=== PATIENT | male | born 1940 | race Caucasian/White ===

== ENCOUNTER 2017-12-01 14:12 | Observation (INO) | payer OTHER ==
--- OUTSIDE RECORDS SUMMARY | 2017-12-01 14:52 | XMS REPORT | Clinical Summary ---
:1940 Author Organization [facility] Address [address] [place] [address] Care Team Providers Name Role Phone Gunnar Samuel MD Primary Care Provider Allergies Active Allergy Reactions Severity Noted Date Comments Codeine Other (See Comments) Low 08/29/2016 dizziness Butorphanol Tartrate Other (See Comments) 08/29/2016 States it was given in the emergency room and after a few minutes patient became very hot and then unresponsive Current Medications Prescription Sig. Disp. Refills Start End Date Status Date carbidopa-levodopa Take 1 tablet 4 Active (SINEMET) 25-100 mg by mouth 4 7 per tablet (four) times a day. AmANTadine (SYMMETREL) Take 100 mg by 2 Active 100 mg capsule mouth 3 7 (three) times a day. clonAZEPAM (KlonoPIN) Take 0.5 mg by 3 Active 0.5 MG tablet mouth nightly. 7 tamsulosin (FLOMAX) Take 1 capsule 30 capsule 0 12/14/19 Active 0.4 mg capsule (0.4 mg total) 8 18 by mouth daily for 30 days. amLODIPine (NORVASC) 5 Take 1 tablet 30 tablet 0 12/14/19 Active mg tablet (5 mg total) 8 18 by mouth daily for 30 days. naloxegol (MOVANTIK) Take 1 tablet 30 tablet 0 12/15/19 Active 25 mg tablet tablet (25 mg total) 8 18 by mouth daily before breakfast for 30 days. gabapentin (NEURONTIN) Take 1 capsule 90 capsule 0 12/14/19 Active 300 mg capsule (300 mg total) 8 18 by mouth 3 (three) times a day for 30 days. diphenhydrAMINE Take 50 mg by 11/14/19 Discontinued (BENADRYL) 50 MG mouth nightly 18 tablet as needed for sleep. aspirin (ECOTRIN) 81 Take 81 mg by 11/14/19 Discontinued MG enteric coated mouth daily. 18 tablet methylPREDNISolone follow package 21 tablet 0 10/29/19 Discontinued (MEDROL DOSEPAK) 4 mg directions 8 18 tablet HYDROcodone-acetaminop Take 1 tablet 20 tablet 0 11/21/19 hen (NORCO) 5-325 mg by mouth every 8 18 per tablet 6 (six) hours as needed for moderate pain for up to 20 doses. Max Daily Amount: 4 tablets Active Problems Problem Noted Date Back pain of lumbar region with sciatica 10/28/2017 Encounters Date Type Specialty Care Team Description 11/30/2017 Office Visit Neurosurgery Rojas Abreu MD Lumbar stenosis with neurogenic claudication (Primary Dx) 11/25/2017 Clinical Support Neurosurgery Sherrie Streeter, Spinal stenosis of RN lumbar region, unspecified whether neurogenic claudication present (Primary Dx) 11/05/2017 Anesthesia Event Radiology Ameya Prasad MD 11/04/2017 Anesthesia Event General Surgery Thania Montoya MD 11/04/2017 Procedure Pass General Surgery 11/04/2017 Surgery General Surgery Rojas Abreu MD LAMINECTOMY, LUMBAR FOR EPIDURAL HEMATOMA L3-4 11/03/2017 Anesthesia Event General Surgery Kaushik Francis MD 11/03/2017 Procedure Pass General Surgery 11/03/2017 Surgery General Surgery Rojas Abreu MD POSS L3-L4 KYPHOPLASTY, POSS L3-S1 DECOMPRESSION 10/28/2017 - Hospital Encounter Neurosurgery Levi, Yen-Te Back pain of lumbar region with sciatica (Primary Dx); 11/13/2017 MD Geovany Degenerative lumbar spinal stenosis; Bel Hernandez Bulging lumbar disc; MD Luz Intractable back pain; Hermila Lewis, Bilateral leg weakness; Falls frequently Jens Benjamin MD after 11/30/2016 Social History Tobacco Use Types Packs/Day Years Used Date Never Smoker Smokeless Tobacco: Never Used Alcohol Use Drinks/Week oz/Week Comments Yes 1 Cans of beer 0.6 1 beer everynight Sex Assigned at Date Recorded Not on file Last Filed Vital Signs Vital Sign Reading Time Taken Blood Pressure 125/64 11/13/2017 12:24 PM CDT Pulse 76 11/13/2017 12:24 PM CDT Temperature 36.8 C (98.2 F) 11/13/2017 12:24 PM CDT Respiratory Rate 17 11/13/2017 12:24 PM CDT Oxygen Saturation 98% 11/13/2017 12:24 PM CDT Inhaled Oxygen Concentration - - Weight 74.8 kg (165 lb) 11/03/2017 1:48 PM CDT Height 182.9 cm (6') 11/03/2017 1:48 PM CDT Body Mass Index 22.38 11/03/2017 1:48 PM CDT Plan of Treatment Date Type Specialty Care Team Description 03/01/2018 Office Visit Neurosurgery Rojas Abreu MD [address] [address] Health Maintenance Due Date Last Done Comments COLON CANCER SCREENING 1992 SHINGRIX VACCINE (#1) 1992 ZOSTER VACCINE 2002 PNEUMOCOCCAL POLYSACCHARIDE VACCINE AGE 65 AND OVER 12/16/2007 PNEUMOCOCCAL-13 12/16/2007 INFLUENZA VACCINE 10/21/2017 Implants Implanted Type Area Athletic Events Scorer Device Expiration Model / Identifier Date Serial / Lot Device Vasclr Clsr Vasoactive Intstnl Peptd 6fr Angio-Seal - [id number] Cardiovascular N/A: 06/20/2018 [id number] / Implanted: 11/05/2017 (Quantity not on file) Implants N/A / [id number] Device Vasclr Clsr Vasoactive Intstnl Peptd 6fr Angio-Seal - [id number] Cardiovascular N/A: 06/20/2018 [id number] / Implanted: 11/05/2017 (Quantity not on file) Implants N/A / [id number] Neurostimulator Imp Activa Sc [id number] 1chnl Qplr - [id number] - [id number] Neurosurgical Right: [employer] 10/17/2017 [id number] / Implanted: Qty: 1 on 08/29/2016 by Rojas Abreu MD Implants Chest NEUROMODULATION [id number] / NA Neurostimulator Imp Activa Sc [id number] 1chnl Qplr - [id number] - [id number] Neurosurgical Left: [employer] 12/04/2017 [id number] / Implanted: Qty: 1 on 08/29/2016 by Rojas Abreu MD Implants Chest NEUROMODULATION [id number] / NA Deep Brain Stimulator-04/06/2005 Implanted: Qty: 2 on 04/06/2005 Procedures Procedure Name Priority Date/Time Associated Comments Diagnosis ZZESTIMATED GFR Routine 11/08/2017 4:00 Results for this AM CDT procedure are in the results section. HC COMPLETE BLD COUNT Routine 11/08/2017 4:00 Results for this W/AUTO DIFF AM CDT procedure are in the results section. BASIC METABOLIC PANEL Routine 11/08/2017 4:00 Results for this AM CDT procedure are in the results section. XR ABDOMEN 1 VW Routine 11/07/2017 12:15 Results for this PORTABLE PM CDT procedure are in the results section. ZZESTIMATED GFR Routine 11/07/2017 4:00 Results for this AM CDT procedure are in the results section. HC COMPLETE BLD COUNT Routine 11/07/2017 4:00 Results for this W/AUTO DIFF AM CDT procedure are in the results section. BASIC METABOLIC PANEL Routine 11/07/2017 4:00 Results for this AM CDT procedure are in the results section. ZZESTIMATED GFR Routine 11/06/2017 4:00 Results for this AM CDT procedure are in the results section. HC COMPLETE BLD COUNT Routine 11/06/2017 4:00 Results for this W/AUTO DIFF AM CDT procedure are in the results section. BASIC METABOLIC PANEL Routine 11/06/2017 4:00 Results for this AM CDT procedure are in the results section. IR ANGIOGRAM SPINAL Routine 11/05/2017 12:13 Results for this SELECT PM CDT procedure are in the results section. TX AN ELECTIVE Routine 11/05/2017 9:41 ENDOTRACHEAL AIRWAY AM CDT Procedure Note - Ameya Prasad MD - 11/05/2017 9:41 AM CDT Airway Date/Time: 11/05/2017 9:41 AM Performed by: AMEYA PRASAD Authorized by: AMEYA PRASAD Location: OR Urgency: Elective Difficult Airway: No Anesthesiologist: AMEYA PRASAD Performed by: anesthesiologist Preoxygenated with 100% O2: Yes C-spine Precautions Maintained Throughout: Yes Mask Ventilation: Easy mask Final Airway Type: Endotracheal airway Final Endotracheal Airway: ETT Cuffed: Yes Technique Used: Direct laryngoscopy Devices/Methods Used in Placement: Intubating stylet Insertion Site: Oral Blade Type: Hernandez Laryngoscope Blade/Videolaryngoscope Blade Size: 2 ETT Size (mm): 8.0 Cuff at minimum occlusion pressure: Yes Measured from: Teeth ETT to Teeth (cm): 22 Placement Verified by: CO2 detection, direct visualization and equal breath sounds Laryngoscopic view: Grade I - full view of glottis Rapid Sequence Induction (RSI): No Modified RSI: No Number of Attempts at Approach: 1 GUMS PROTECTED. ATRAUMATIC. ECG 12-LEAD STAT 11/05/2017 8:22 AM CDT ZZESTIMATED GFR Routine 11/05/2017 12:15 AM CDT HC COMPLETE BLD COUNT Routine 11/05/2017 12:15 AM CDT Results for this W/AUTO DIFF procedure are in the results section. BASIC METABOLIC PANEL Routine 11/05/2017 12:15 AM CDT POC GLUCOSE Routine 11/04/2017 3:21 PM CDT SURGICAL PATHOLOGY REQUEST Routine 11/04/2017 1:14 PM CDT TX AN ELECTIVE ENDOTRACHEAL Routine 11/04/2017 11:41 AM CDT AIRWAY Procedure Note - Lewis Short CRNA - 11/04/2017 11:41 AM CDT Airway Date/Time: 11/04/2017 10:49 AM Performed by: LEWIS SHORT Authorized by: THANIA MONTOYA Location: OR Urgency: Elective Difficult Airway: No Resident/ELEMENTARY SUBSTITUTE TEACHER/AA: LEWIS SHORT Performed by: resident/ELEMENTARY SUBSTITUTE TEACHER/AA Preoxygenated with 100% O2: Yes C-spine Precautions Maintained Throughout: Yes Mask Ventilation: Easy mask Final Airway Type: Endotracheal airway Final Endotracheal Airway: ETT Cuffed: Yes Technique Used: Direct laryngoscopy Blade Type: Hernandez Laryngoscope Blade/Videolaryngoscope Blade Size: 2 ETT Size (mm): 8.0 Cuff at minimum occlusion pressure: Yes Measured from: Gums ETT to Gums (cm): 22 Placement Verified by: CO2 detection, direct visualization and equal breath sounds Laryngoscopic view: Grade I - full view of glottis Rapid Sequence Induction (RSI): No Modified RSI: No Number of Attempts at Approach: 1 BETA TRANSFERRIN LEVEL Routine 11/04/2017 11:15 AM Results for this CDT procedure are in the results section. BLOOD CULTURE, AEROBIC Routine 11/04/2017 11:15 AM Results for this & ANAEROBIC CDT procedure are in the results section. LAMINECTOMY, LUMBAR 11/04/2017 10:05 AM l3-[address] LUMBAR SPINE WO STAT 11/04/2017 9:45 AM Results for this CONTRAST CDT procedure are in the results section. URINE CULTURE Routine 11/04/2017 8:26 AM Results for this CDT procedure are in the results section. URINALYSIS SCREEN AND Routine 11/04/2017 7:45 AM Results for this MICROSCOPY, WITH REFLEX CDT procedure are in TO CULTURE the results section. PARTIAL THROMBOPLASTIN Routine 11/04/2017 3:45 AM Results for this TIME (PTT) CDT procedure are in the results section. OR FL > 1 HOUR Routine 11/03/2017 4:15 PM Results for this CDT procedure are in the results section. TX AN ELECTIVE Routine 11/03/2017 2:53 PM ENDOTRACHEAL AIRWAY CDT Procedure Note - Roxie Riley CRNA - 11/03/2017 2:53 PM CDT Airway Date/Time: 11/03/2017 2:32 PM Performed by: ROXIE RILEY Authorized by: KAUSHIK FRANCIS Location: OR Urgency: Elective Difficult Airway: No Preoxygenated with 100% O2: Yes C-spine Precautions Maintained Throughout: Yes Mask Ventilation: Easy mask Final Airway Type: Endotracheal airway Final Endotracheal Airway: ETT Cuffed: Yes Technique Used: Direct laryngoscopy Devices/Methods Used in Placement: Intubating stylet Insertion Site: Oral Blade Type: Hernandez Laryngoscope Blade/Videolaryngoscope Blade Size: 2 ETT Size (mm): 8.0 Cuff at minimum occlusion pressure: Yes Measured from: Lips ETT to Lips (cm): 22 Placement Verified by: CO2 detection and direct visualization Laryngoscopic view: Grade I - full view of glottis Rapid Sequence Induction (RSI): No Modified RSI: No Number of Attempts at Approach: 1 KYPHOPLASTY 11/03/2017 12:30 PM CDT PARTIAL THROMBOPLASTIN TIME Routine 11/03/2017 10:35 AM CDT Results for this (PTT) procedure are in the results section. PROTHROMBIN TIME WITH INR Routine 11/03/2017 10:35 AM CDT PLATELET FUNCTION ANALYSIS Routine 11/03/2017 10:35 AM CDT SURGICAL PATHOLOGY REQUEST Routine 11/03/2017 8:49 AM CDT ZZESTIMATED GFR Routine 11/03/2017 6:31 AM CDT PARTIAL THROMBOPLASTIN TIME Routine 11/03/2017 6:31 AM CDT Results for this (PTT) procedure are in the results section. TYPE AND SCREEN Routine 11/03/2017 6:31 AM CDT PROTHROMBIN TIME WITH INR Routine 11/03/2017 6:31 AM CDT COMPREHENSIVE METABOLIC Routine 11/03/2017 6:31 AM CDT Results for this PANEL procedure are in the results section. HC COMPLETE BLD COUNT W/AUTO Routine 11/03/2017 6:31 AM CDT Results for this DIFF procedure are in the results section. NM BONE SCAN 3 PHASE Routine 11/02/2017 5:19 PM CDT ZZESTIMATED GFR Routine 11/02/2017 4:00 AM CDT BASIC METABOLIC PANEL Routine 11/02/2017 4:00 AM CDT POC GLUCOSE Routine 11/01/2017 8:37 PM CDT POC GLUCOSE Routine 11/01/2017 4:47 PM CDT POC GLUCOSE Routine 11/01/2017 12:18 PM CDT POC GLUCOSE Routine 11/01/2017 7:25 AM CDT ZZESTIMATED GFR Routine 11/01/2017 3:31 AM CDT COMPREHENSIVE METABOLIC Routine 11/01/2017 3:31 AM CDT Results for this PANEL procedure are in the results section. HC COMPLETE BLD COUNT W/AUTO Routine 11/01/2017 3:00 AM CDT Results for this DIFF procedure are in the results section. ZZESTIMATED GFR Routine 10/31/2017 4:35 AM CDT COMPREHENSIVE METABOLIC Routine 10/31/2017 4:35 AM CDT Results for this PANEL procedure are in the results section. HC COMPLETE BLD COUNT W/AUTO Routine 10/31/2017 4:35 AM CDT Results for this DIFF procedure are in the results section. CT POST MYELOGRAM LUMBAR Routine 10/30/2017 4:39 PM CDT IR MYELOGRAM LUMB INCL INJ W Routine 10/30/2017 2:35 PM CDT Results for this S&I procedure are in the results section. POC GLUCOSE Routine 10/30/2017 12:34 PM CDT POC GLUCOSE Routine 10/30/2017 9:26 AM CDT POC GLUCOSE Routine 10/30/2017 5:51 AM CDT HC COMPLETE BLD COUNT W/AUTO Routine 10/30/2017 4:10 AM CDT Results for this DIFF procedure are in the results section. ZZESTIMATED GFR Routine 10/30/2017 4:00 AM CDT COMPREHENSIVE METABOLIC Routine 10/30/2017 4:00 AM CDT Results for this PANEL procedure are in the results section. URINALYSIS SCREEN AND STAT 10/29/2017 8:44 AM CDT Results for this MICROSCOPY, WITH REFLEX TO procedure are in the CULTURE results section. URINE CULTURE STAT 10/29/2017 8:44 AM CDT POC GLUCOSE Routine 10/29/2017 7:54 AM CDT PLATELET FUNCTION P2Y12 Routine 10/28/2017 11:45 PM CDT PLATELET FUNCTION ANALYSIS Routine 10/28/2017 11:45 PM CDT PARTIAL THROMBOPLASTIN TIME STAT 10/28/2017 11:45 PM CDT Results for this (PTT) procedure are in the results section. PROTHROMBIN TIME WITH INR STAT 10/28/2017 11:45 PM CDT HC COMPLETE BLD COUNT W/AUTO STAT 10/28/2017 11:45 PM CDT Results for this DIFF procedure are in the results section. POC GLUCOSE Routine 10/28/2017 10:29 PM CDT ZZESTIMATED GFR STAT 10/28/2017 10:01 PM CDT COMPREHENSIVE METABOLIC STAT 10/28/2017 10:01 PM CDT Results for this PANEL procedure are in the results section. CT PELVIS WO CONTRAST STAT 10/28/2017 6:[address] LUMBAR SPINE WO CONTRAST STAT 10/28/2017 6:28 PM CDT after 11/30/2016 Results Estimated GFR (11/08/2017 4:00 AM)Only the most recent of10 resultswithin the time period is included. GFR Non Af Amer 73 mL/min/1.73 m2 [facility] DEPARTMENT OF PATHOLOGY AND GENOMIC MEDICINE GFR Af Amer 88 mL/min/1.73 m2 [facility] DEPARTMENT OF Comment: PATHOLOGY AND GENOMIC Chronic kidney disease: <60 mL/min/1.73m2 MEDICINE Kidney failure: <15 mL/min/1.73m2 The estimated GFR is calculated from the IDMS-traceable Modification of Diet in Renal Disease Equation. The accuracy of the calculation is poor when the creatinine is normal. Calculated values >90 mL/min/1.73m2 are not reported. This equation has not been validated in children (<18 years), women, the elderly (>70 years), or ethnic groups other than Caucasians and Americans. Specimen Plasma specimen Performing Organization Address City/State/Zipcode Phone Number [facility] DEPARTMENT OF PATHOLOGY AND [address] [place] [address] [employer] [facility] CBC with platelet and differential (11/08/2017 4:00 AM)Only the most recent of9 resultswithin the time period is included. WBC 6.84 4.50 - 11.00 k/uL [facility] DEPARTMENT OF PATHOLOGY AND GENOMIC MEDICINE RBC 3.60 (L) 4.40 - 6.00 m/uL [facility] DEPARTMENT OF PATHOLOGY AND GENOMIC MEDICINE HGB 10.9 (L) 14.0 - 18.0 g/dL [facility] DEPARTMENT OF PATHOLOGY AND GENOMIC MEDICINE HCT 32.5 (L) 41.0 - 51.0 % [facility] DEPARTMENT OF PATHOLOGY AND GENOMIC MEDICINE MCV 90.3 82.0 - 100.0 fL [facility] DEPARTMENT OF PATHOLOGY AND GENOMIC MEDICINE MCH 30.3 27.0 - 34.0 pg [facility] DEPARTMENT OF PATHOLOGY AND GENOMIC MEDICINE MCHC 33.5 31.0 - 37.0 g/dL [facility] DEPARTMENT OF PATHOLOGY AND GENOMIC MEDICINE RDW - SD 48.6 37.0 - 55.0 fL [facility] DEPARTMENT OF PATHOLOGY AND GENOMIC MEDICINE MPV 9.5 8.8 - 13.2 fL [facility] DEPARTMENT OF PATHOLOGY AND GENOMIC MEDICINE Platelet count 150 150 - 400 k/uL [facility] DEPARTMENT OF PATHOLOGY AND GENOMIC MEDICINE Nucleated RBC 0.00 /100 WBC [facility] DEPARTMENT OF PATHOLOGY AND GENOMIC MEDICINE Neutrophils 70.2 (H) 39.0 - 69.0 % [facility] DEPARTMENT OF PATHOLOGY AND GENOMIC MEDICINE Lymphocytes 15.8 (L) 25.0 - 45.0 % [facility] DEPARTMENT OF PATHOLOGY AND GENOMIC MEDICINE Monocytes 9.6 0.0 - 10.0 % [facility] DEPARTMENT OF PATHOLOGY AND GENOMIC MEDICINE Eosinophils 2.9 0.0 - 5.0 % [facility] DEPARTMENT OF PATHOLOGY AND GENOMIC MEDICINE Basophils 0.3 0.0 - 1.0 % [facility] DEPARTMENT OF PATHOLOGY AND GENOMIC MEDICINE Immature granulocytes 1.2 (H)Comment: 0.0 - 1.0 % [facility] DEPARTMENT OF "Immature PATHOLOGY AND GENOMIC granulocytes" MEDICINE (promyelocytes, myelocytes, metamyelocytes) Specimen Blood Performing Organization Address City/State/Zipcode Phone Number [facility] DEPARTMENT OF PATHOLOGY [address] [address] [employer] MEDICINE Basic metabolic panel (11/08/2017 4:00 AM)Only the most recent of5 resultswithin the time period is included. Sodium 139 135 - 148 mEq/L [facility] DEPARTMENT OF PATHOLOGY AND GENOMIC MEDICINE Potassium 3.9 3.5 - 5.0 mEq/L [facility] DEPARTMENT OF PATHOLOGY AND GENOMIC MEDICINE Chloride 103 98 - 112 mEq/L [facility] DEPARTMENT OF PATHOLOGY AND GENOMIC MEDICINE CO2 23 (L) 24 - 31 mEq/L [facility] DEPARTMENT OF PATHOLOGY AND GENOMIC MEDICINE Anion gap 13@ANIO 7 - 15 mEq/L [facility] DEPARTMENT OF PATHOLOGY AND GENOMIC MEDICINE BUN 16 8 - 23 mg/dL [facility] DEPARTMENT OF PATHOLOGY AND GENOMIC MEDICINE Creatinine 1.0 0.7 - 1.2 mg/dL [facility] DEPARTMENT OF PATHOLOGY AND GENOMIC MEDICINE Glucose 95 65 - 99 mg/dL [facility] DEPARTMENT OF PATHOLOGY AND GENOMIC MEDICINE Calcium 8.4 (L) 8.8 - 10.2 mg/dL [facility] DEPARTMENT OF PATHOLOGY AND GENOMIC MEDICINE Specimen Plasma specimen Performing Organization Address [facility] Phone Number [facility] DEPARTMENT OF PATHOLOGY AND [address] [place] [address] GENOMIC MEDICINE XR Abdomen 1 Vw Portable (11/07/2017 12:15 PM) Narrative Performed At EXAMINATION:XR ABDOMEN 1 VW PORTABLE [facility] CLINICAL HISTORY:abd distendedconstipatedhypoactive bs COMPARISON:None. FINDINGS: There is gaseous distention of the colon with a moderate to large amount of stool in the descending colon and sigmoid. A vertical staple line is present in the over the distal lumbar spine from recent surgery. A surgical drain catheter to is located in the lower lumbar spine region. IMPRESSION: Gaseous distention of the ascending and transverse colon may be secondary to constipation or postoperative adynamic ileus. [id number] Procedure Note Interface, Radiology Results Incoming - 11/07/2017 1:33 PM CDT EXAMINATION: XR ABDOMEN 1 VW PORTABLE CLINICAL HISTORY: abd distended constipated hypoactive bs COMPARISON: None. FINDINGS: There is gaseous distention of the colon with a moderate to large amount of stool in the descending colon and sigmoid. A vertical staple line is present in the over the distal lumbar spine from recent surgery. A surgical drain catheter to is located in the lower lumbar spine region. IMPRESSION: Gaseous distention of the ascending and transverse colon may be secondary to constipation or postoperative adynamic ileus. [id number] Performing Organization Address [facility] Phone Number [facility] [address] [place] [address] IR Angiogram Spinal (11/05/2017 12:13 PM) Narrative Performed At Clinical History: [facility] 76-year-old male who had undergone a lumbar laminectomy at with evidence of previous hemosiderin suggestive of underlying vascular malformation Technique: Written informed consent was obtained from the patient. Under general anesthesia, utilizing a right femoral percutaneous approach, following procedures were performed. Bilateral L1 injection in frontal projection. Left L2 injection in frontal projection. Right L2 injection in frontal projection. Bilateral L3 injection in frontal projection. Bilateral L4 injection in frontal projection. Median sacral artery examination in frontal projection. Left T12 examination in frontal projection. Right T11 examination in frontal projection. Left T10 examination in frontal projection. Right T10 examination in frontal projection. Left T9 examination in frontal projection. Right T9 examination in frontal projection. Left T8 examination in frontal projection. Right T8 examination in frontal projection. Left T7 examination in frontal projection. Right T7 examination in frontal projection. Left T6 examination in frontal projection. Right T6 examination in frontal projection. Right T4-T5 examination in frontal projection. Left T5 examination in frontal projection. Left supreme intercostal injection in frontal projection. Left iliac examination in frontal projection. Right iliac examination in frontal projection. Right vertebral injection, cervical evaluation in biplane projection. Right supreme intercostal injection in frontal projection. Right vertebral injection, cerebral examination in biplane projection. Right thyrocervical examination in frontal projection. Right external carotid arteriogram in biplane projection. Left external carotid injection in biplane projection. Left vertebral injection, cervical evaluation in frontal projection. Left vertebral injection, cerebral examination in biplane projection. Left thyrocervical examination in frontal projection. Right common femoral arteriogram in frontal projection. KA R 3462 mGy Findings: The L1 injection shows both lumbar arteries. There is no evidence of vascular malformation. Left L to examination is without vascular abnormality. Right L2 examination is without vascular abnormalities. The L3 injection shows both lumbar arteries. No vascular abnormality is are identified. The L4 injection fills both arteries as well as the median sacral artery. No vascular abnormalities are identified. Median sacral examination shows collaterals to the external iliac artery with filling of the gluteal arteries. No vascular abnormalities are identified. Left T12 examination shows the anterior spinal artery and is normal in appearance with no evidence of dural fistula. The right T12 intercostal injection fills both the T12 and T11 levels which are conjoined. No vascular abnormalities are identified. Left T11 injection shows a conjoined origin of the left T10 and T11 intercostal's. No vascular abnormalities are identified. Right T10 examination shows no vascular abdomen arteries. Left T9 examination shows no vascular abnormalities. Right T9 evaluation shows no vascular abdomen arteries. There is stenosis at the origin of the T9 intercostal. Left T8 examination shows no vascular abnormalities. Right T8 examination shows no vascular abnormalities but there is stenosis with plaque at the origin of the T8 intercostal. Left T7 examination is normal with no vascular abdomen arteries. Right T7 examination is normal with no vascular abnormalities. Left T6 evaluation is normal with no vascular abnormalities. Right T6 examination is normal with no vascular abnormalities. There is mild stenosis at the origin of the right T6 intercostal. Right T5 injection shows both the T4 and T5 intercostal's which are normal with no vascular abdomen arteries identified. Left T5 examination is normal with no vascular denies are identified. Left supreme intercostal injection is normal with no vascular abnormalities. Left internal iliac examination shows some collaterals to the median sacral artery but no vascular abnormalities are identified. 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 No vascular denies are identified. Right vertebral injection, cervical evaluation shows normal cervical vertebral artery with some tortuosity. The anterior spinal artery is identified in the cervical region which is normal. Right supreme intercostal injection shows normal supreme intercostals with no vascular abnormalities identified. Right vertebral injection, cerebral examination shows mild narrowing of the left P1 P2 junction. There is antegrade flow basilar artery and posterior circulation. No vascular denies are identified. Right thyrocervical injection shows no vascular abnormalities. Right external carotid injection shows normal external carotid branches with no evidence of dural fistula or vascular malformation. Left vertebral injection, cervical evaluation shows normal cervical vertebral artery with some tortuosity. Left vertebral injection, cerebral examination shows antegrade flow to the basilar artery and posterior circulation. No vascular abdomen arteries are identified. Left thyrocervical examination shows normal branches with no vascular abnormality identified Plain film examination of the abdomen shows dilatation of the ureters. There may be some degree of stenosis of the ureter is at the entrance to the bladder. Right common femoral arteriogram demonstrates a normal common femoral, superficial femoral and profunda arteries. There were no immediate complications. The femoral sheath was removed and hemostasis was maintained by manual compression and Angio-Seal. Impression: Negative spinal axis arteriogram with no evidence of dural fistula or arteriovenous malformation. [facility]-[id number] Procedure Note [facility], Radiology Results - 11/05/2017 7:19 PM CDT Clinical History: 76-year-old male who had undergone a lumbar laminectomy at with evidence of previous hemosiderin suggestive of underlying vascular malformation Technique: Written informed consent was obtained from the patient. Under general anesthesia, utilizing a right femoral percutaneous approach, following procedures were performed. Bilateral L1 injection in frontal projection. Left L2 injection in frontal projection. Right L2 injection in frontal projection. Bilateral L3 injection in frontal projection. Bilateral L4 injection in frontal projection. Median sacral artery examination in frontal projection. Left T12 examination in frontal projection. Right T11 examination in frontal projection. Left T10 examination in frontal projection. Right T10 examination in frontal projection. Left T9 examination in frontal projection. Right T9 examination in frontal projection. Left T8 examination in frontal projection. Right T8 examination in frontal projection. Left T7 examination in frontal projection. Right T7 examination in frontal projection. Left T6 examination in frontal projection. Right T6 examination in frontal projection. Right T4-T5 examination in frontal projection. Left T5 examination in frontal projection. Left supreme intercostal injection in frontal projection. Left iliac examination in frontal projection. Right iliac examination in frontal projection. Right vertebral injection, cervical evaluation in biplane projection. Right supreme intercostal injection in frontal projection. Right vertebral injection, cerebral examination in biplane projection. Right thyrocervical examination in frontal projection. Right external carotid arteriogram in biplane projection. Left external carotid injection in biplane projection. Left vertebral injection, cervical evaluation in frontal projection. Left vertebral injection, cerebral examination in biplane projection. Left thyrocervical examination in frontal projection. Right common femoral arteriogram in frontal projection. KA R 3462 mGy Findings: The L1 injection shows both lumbar arteries. There is no evidence of vascular malformation. Left L to examination is without vascular abnormality. Right L2 examination is without vascular abnormalities. The L3 injection shows both lumbar arteries. No vascular abnormality is are identified. The L4 injection fills both arteries as well as the median sacral artery. No vascular abnormalities are identified. Median sacral examination shows collaterals to the external iliac artery with filling of the gluteal arteries. No vascular abnormalities are identified. Left T12 examination shows the anterior spinal artery and is normal in appearance with no evidence of dural fistula. The right T12 intercostal injection fills both the T12 and T11 levels which are conjoined. No vascular abnormalities are identified. Left T11 injection shows a conjoined origin of the left T10 and T11 intercostal 's. No vascular abnormalities are identified. Right T10 examination shows no vascular abdomen arteries. Left T9 examination shows no vascular abnormalities. Right T9 evaluation shows no vascular abdomen arteries. There is stenosis at the origin of the T9 intercostal. Left T8 examination shows no vascular abnormalities. Right T8 examination shows no vascular abnormalities but there is stenosis with plaque at the origin of the T8 intercostal. Left T7 examination is normal with no vascular abdomen arteries. Right T7 examination is normal with no vascular abnormalities. Left T6 evaluation is normal with no vascular abnormalities. Right T6 examination is normal with no vascular abnormalities. There is mild stenosis at the origin of the right T6 intercostal. Right T5 injection shows both the T4 and T5 intercostal's which are normal with no vascular abdomen arteries identified. Left T5 examination is normal with no vascular denies are identified. Left supreme intercostal injection is normal with no vascular abnormalities. Left internal iliac examination shows some collaterals to the median sacral artery but no vascular abnormalities are identified. 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 No vascular denies are identified. Right vertebral injection, cervical evaluation shows normal cervical vertebral artery with some tortuosity. The anterior spinal artery is identified in the cervical region which is normal. Right supreme intercostal injection shows normal supreme intercostals with no vascular abnormalities identified. Right vertebral injection, cerebral examination shows mild narrowing of the left P1 P2 junction. There is antegrade flow basilar artery and posterior circulation. No vascular denies are identified. Right thyrocervical injection shows no vascular abnormalities. Right external carotid injection shows normal external carotid branches with no evidence of dural fistula or vascular malformation. Left vertebral injection, cervical evaluation shows normal cervical vertebral artery with some tortuosity. Left vertebral injection, cerebral examination shows antegrade flow to the basilar artery and posterior circulation. No vascular abdomen arteries are identified. Left thyrocervical examination shows normal branches with no vascular abnormality identified Plain film examination of the abdomen shows dilatation of the ureters. There may be some degree of stenosis of the ureter is at the entrance to the bladder. Right common femoral arteriogram demonstrates a normal common femoral, superficial femoral and profunda arteries. There were no immediate complications. The femoral sheath was removed and hemostasis was maintained by manual compression and Angio-Seal. Impression: Negative spinal axis arteriogram with no evidence of dural fistula or arteriovenous malformation. [facility]-[id number] Performing Organization Address City/State/Zipcode Phone Number [facility] [address] [place] [address] ECG 12 lead (11/05/2017 8:22 AM) Ventricular rate 82 [facility] MUSE Atrial rate 43 [facility] MUSE QRSD interval 98 [facility] MUSE QT interval 374 [facility] MUSE QTC interval 436 [facility] MUSE QRS axis 1 31 [facility] MUSE T wave axis 1 [facility] MUSE EKG impression ^^^ Poor data quality, interpretation may be adversely affected -Undetermined rhythm-Minimal voltage criteria for LVH, may be normal variant-ST & T wave abnormality, consider inferior ischemia-Abnorm [facility] MUSE al ECG-No previous ECGs available- Performing Organization Address City/[facility] Phone Number [facility] MUSE [address] [place] [phone] POC glucose (11/04/2017 3:21 PM)Only the most recent of10 resultswithin the time period is included. POC glucose 100 (H) 65 - 99 mg/dL [facility] DEPARTMENT OF PATHOLOGY AND Comment: GENOMIC MEDICINE [facility] Notified RN Meter ID: [id number] Seamless Tube Roller: CHRIS JOHN Performing Organization Address City/[facility] Mex[facility]ode Phone Number [facility] DEPARTMENT OF PATHOLOGY AND [address] [place] [phone] GENOMIC MEDICINE Surgical pathology request (11/04/2017 1:14 PM)Only the most recent of2 resultswithin the time period is included. [facility] DEPARTMENT OF PATHOLOGY AND GENOMIC MEDICINE Surgical pathology report See link below for PDF [facility] DEPARTMENT OF Lab Report PATHOLOGY AND GENOMIC MEDICINE Result status This is Final Report [facility] DEPARTMENT OF for [id number] PATHOLOGY AND GENOMIC MEDICINE Performing Organization Address [facility] Phone Number [facility] DEPARTMENT OF PATHOLOGY AND [address] [place] [phone] [facility] Blood culture, aerobic & anaerobic (11/04/2017 11:15 AM) Blood culture isolate No growth after 5 days of incubation. [facility] DEPARTMENT OF Comment: PATHOLOGY AND GENOMIC Specimen Information MEDICINE Specimen Source: Blood Specimen Site: Unspecified Specimen Blood Performing Organization Address City/[facility] Phone Number [facility] DEPARTMENT OF PATHOLOGY AND [address] [place] [phone] [facility] Beta transferrin level (11/04/2017 11:15 AM) Beta-2 transferrin See below [facility] DEPARTMENT OF PATHOLOGY Comment: AND [employer] MEDICINE Beta-2 transferrin is not seen in this specimen, indicating that within the limits of this assay, there is no evidence of CSF in this specimen. Reviewed by Dr. Cinthia Luis MD., Dr. Zahira Bourgeois PhD.,Dr. Ezequiel Youssef MD. TRFB results called to and read back by Lizbet RICHARDS/ALESSANDRO (name/location) at 11/04/201704:45(date/time) by TS. Specimen Fluid Performing Organization Address City/State/Zipcode Phone Number [facility] DEPARTMENT OF PATHOLOGY AND [address] [place], [place] [phone] [place] [address] CT Lumbar Spine Wo Contrast (11/04/2017 9:45 AM)Only the most recent of2 resultswithin the time period is included. Narrative Performed At EXAMINATION:CT LUMBAR SPINE WO CONTRAST [facility] CLINICAL HISTORY:Post op laminectomychange in exam COMPARISON:October 30, 2017 Findings: Lumbar spine alignment is within normal limits. Generalized osteopenia. Stable multilevel compression deformities in the lumbar and visualized thoracic vertebrae. No new compression fractures. Mild to moderate degenerative changes of bilateral sacroiliac joints. Interval laminectomy changes at L3-4. There is expected air and edematous changes on the laminectomy site and overlying soft tissues. No residual bony narrowing. Presence of epidural hematoma or residual canal narrowing can be further evaluated with myelogram or MRI. Stable degenerative changes are remaining levels. IMPRESSION: Expected postoperative changes related to recent L3-4 laminectomy. [facility]-[id number] Procedure Note Hm Interface, Radiology Results Incoming - 11/04/2017 10:22 AM CDT EXAMINATION: CT LUMBAR SPINE WO CONTRAST CLINICAL HISTORY: Post op laminectomy change in exam COMPARISON: October 30, 2017 Findings: Lumbar spine alignment is within normal limits. Generalized osteopenia. Stable multilevel compression deformities in the lumbar and visualized thoracic vertebrae. No new compression fractures. Mild to moderate degenerative changes of bilateral sacroiliac joints. Interval laminectomy changes at L3-4. There is expected air and edematous changes on the laminectomy site and overlying soft tissues. No residual bony narrowing. Presence of epidural hematoma or residual canal narrowing can be further evaluated with myelogram or MRI. Stable degenerative changes are remaining levels. IMPRESSION: Expected postoperative changes related to recent L3-4 laminectomy. [facility]-[id number] Performing Organization Address [facility]ode Phone Number [facility] [address] [place] [address] Urine culture (11/04/2017 8:26 AM)Only the most recent of2 resultswithin the time period is included. Urine culture SEE COMMENTComment: Bacteriuria [facility] DEPARTMENT OF PATHOLOGY screen negative. AND GENOMIC MEDICINE Performing Organization Address [facility]i Phone Number [facility] DEPARTMENT OF PATHOLOGY AND [address] [place] [phone] GENOMIC MEDICINE Urinalysis screen and microscopy, with reflex to culture (11/04/2017 7:45 AM) Only the most recent of2 resultswithin the time period is included. Specimen site Clean catch [facility] DEPARTMENT OF PATHOLOGY AND GENOMIC MEDICINE Color, UA Yellow [facility] DEPARTMENT OF PATHOLOGY AND GENOMIC MEDICINE Appearance, UA Clear [facility] DEPARTMENT OF PATHOLOGY AND GENOMIC MEDICINE Specific gravity, UA 1.017 1.001 - 1.035 [facility] DEPARTMENT OF PATHOLOGY AND GENOMIC MEDICINE pH, UA 5.0 5.0 - 8.5 [facility] DEPARTMENT OF PATHOLOGY AND GENOMIC MEDICINE Protein, UA Negative Negative [facility] DEPARTMENT OF PATHOLOGY AND GENOMIC MEDICINE Glucose, UA Negative Negative [facility] DEPARTMENT OF PATHOLOGY AND GENOMIC MEDICINE Ketones, UA 1+ (A) Negative [facility] DEPARTMENT OF PATHOLOGY AND GENOMIC MEDICINE Bilirubin, UA Negative Negative [facility] DEPARTMENT OF PATHOLOGY AND GENOMIC MEDICINE Blood, UA Negative Negative [facility] DEPARTMENT OF PATHOLOGY AND GENOMIC MEDICINE Nitrite, UA Negative Negative [facility] DEPARTMENT OF PATHOLOGY AND GENOMIC MEDICINE Urobilinogen, UA <2.0 <2.0 [facility] DEPARTMENT OF PATHOLOGY AND GENOMIC MEDICINE Leukocyte esterase, UA Negative Negative [facility] DEPARTMENT OF PATHOLOGY AND GENOMIC MEDICINE Epithelial cells, UA <1 /HPF [facility] DEPARTMENT OF PATHOLOGY AND GENOMIC MEDICINE Round epithelial cells, UA <1 0 - 1 /HPF [facility] DEPARTMENT OF PATHOLOGY AND GENOMIC MEDICINE WBC, UA 1 0 - 1 /HPF [facility] DEPARTMENT OF PATHOLOGY AND GENOMIC MEDICINE RBC, UA 1 0 - 5 /HPF [facility] DEPARTMENT OF PATHOLOGY AND GENOMIC MEDICINE Bacteria, UA None seen None seen [facility] DEPARTMENT OF PATHOLOGY AND GENOMIC MEDICINE Yeast, UA None seen [facility] DEPARTMENT OF PATHOLOGY AND GENOMIC MEDICINE Yeast with pseudohyphae, UA None seen [facility] DEPARTMENT OF PATHOLOGY AND GENOMIC MEDICINE Hyaline casts, UA 1 /LPF [facility] DEPARTMENT OF PATHOLOGY AND GENOMIC MEDICINE Specimen Urine Performing Organization Address City/State/Zipcode Phone Number [facility] DEPARTMENT OF PATHOLOGY AND [address] [place] [address] [facility] Partial thromboplastin time, activated (11/04/2017 3:45 AM)Only the most recent of4 resultswithin the time period is included. PTT 29.2 23.0 - 36.0 sec [facility] DEPARTMENT OF PATHOLOGY Comment: AND GENOMIC MEDICINE PTT therapeutic range for unfractionated heparin is 61.0-112.0 seconds which corresponds to Anti-Xa 0.3-0.7 U/ml. Specimen Blood Performing Organization Address City/[facility]/Zipcode Phone Number [facility] DEPARTMENT OF PATHOLOGY AND [address] [place] [address] GENOMIC MEDICINE [place] > I Hour (11/03/2017 4:15 PM) Narrative Performed At EXAMINATION:OR [place] 1 HOUR [facility] C-arm fluoroscopy was requested in OR. LOCATION: [facility] OR 10 PROCEDURE: C-ARM FOR POSS L3-L4 KYPHOPLASTY, POSS L3-S1 DECOMPRESSION START: 1430 END: 1615 [place] TIME: .1min DOSE (mGy): 2.25 TECH: DR/VINEET IMPRESSION: Separate operative report will be issued by the physician performing the procedure. [id number] Procedure Note Interface, Radiology Results Incoming - 11/03/2017 6:26 PM CDT EXAMINATION: [place] 1 HOUR C-arm fluoroscopy was requested in OR. LOCATION: [facility] OR 10 PROCEDURE: C-ARM FOR POSS L3-L4 KYPHOPLASTY, POSS L3-S1 DECOMPRESSION START: 1430 END: 1615 [place] TIME: .1min DOSE (mGy): 2.25 TECH: DR/TD IMPRESSION: Separate operative report will be issued by the physician performing the procedure. [id number] Performing Organization Address City/State/Zipcode Phone Number [facility] [address] [place] [address] Prothrombin time with INR (11/03/2017 10:35 AM)Only the most recent of3 resultswithin the time period is included. Prothrombin time 15.1 (H) 12.0 - 15.0 sec [facility] DEPARTMENT OF PATHOLOGY AND GENOMIC MEDICINE INR 1.2 [facility] DEPARTMENT OF Comment: PATHOLOGY AND GENOMIC The International Normalized Ratio (INR) is a therapeutic MEDICINE monitoring tool for patients who are stable on oral anticoagulant therapy. An INR of 2.0-3.0 is suggested for deep vein thrombosis/pulmonary embolism. Specimen Blood Performing Organization Address City/[facility]/Zipcode Phone Number [facility] DEPARTMENT OF PATHOLOGY AND [address] [place] [address] MEDICINE Platelet function analysis (11/03/2017 10:35 AM)Only the most recent of2 resultswithin the time period is included. PFA EPI closure time 125 92 - 184 sec [facility] DEPARTMENT OF PATHOLOGY AND GENOMIC MEDICINE PFA ADP closure time 114 72 - 126 sec [facility] DEPARTMENT OF PATHOLOGY AND GENOMIC MEDICINE Specimen Plasma specimen Performing Organization Address City/[facility] Phone Number [facility] DEPARTMENT OF PATHOLOGY AND [address] [place] [address] GENOMIC MEDICINE Type and screen (11/03/2017 6:31 AM) ABO grouping A [facility] DEPARTMENT OF PATHOLOGY AND GENOMIC MEDICINE Rh type POS [facility] DEPARTMENT OF PATHOLOGY AND GENOMIC MEDICINE Antibody screen (gel) NEG [facility] DEPARTMENT OF PATHOLOGY AND GENOMIC MEDICINE Specimen Blood Performing Organization Address [facility] Phone Number [facility] DEPARTMENT OF PATHOLOGY AND [address] [place] [address] MEDICINE Comprehensive metabolic panel (11/03/2017 6:31 AM)Only the most recent of5 resultswithin the time period is included. Sodium 136 135 - 148 mEq/L [facility] DEPARTMENT OF PATHOLOGY AND GENOMIC MEDICINE Potassium 4.0 3.5 - 5.0 mEq/L [facility] DEPARTMENT OF PATHOLOGY AND GENOMIC MEDICINE Chloride 103 98 - 112 mEq/L [facility] DEPARTMENT OF PATHOLOGY AND GENOMIC MEDICINE CO2 20 (L) 24 - 31 mEq/L [facility] DEPARTMENT OF PATHOLOGY AND GENOMIC MEDICINE Anion gap 13@ANIO 7 - 15 mEq/L [facility] DEPARTMENT OF PATHOLOGY AND GENOMIC MEDICINE BUN 23 8 - 23 mg/dL [facility] DEPARTMENT OF PATHOLOGY AND GENOMIC MEDICINE Creatinine 1.0 0.7 - 1.2 mg/dL [facility] DEPARTMENT OF PATHOLOGY AND GENOMIC MEDICINE Glucose 90 65 - 99 mg/dL [facility] DEPARTMENT OF PATHOLOGY AND GENOMIC MEDICINE Calcium 8.9 8.8 - 10.2 mg/dL [facility] DEPARTMENT OF PATHOLOGY AND GENOMIC MEDICINE Protein 6.6 6.3 - 8.3 g/dL [facility] DEPARTMENT OF Comment: PATHOLOGY AND GENOMIC 4.6-7.0 g/dL MEDICINE 1 week 4.4-7.6 g/dL 7 months-1year5.1-7.3 g/dL 1-2 years5.6-7.5 g/dL >3 years6.0-8.0 g/dL 18-150 6.3-8.3 g/dL Albumin 3.3 (L) 3.5 - 5.0 g/dL [facility] DEPARTMENT OF PATHOLOGY AND GENOMIC MEDICINE A/G ratio 1.0 0.7 - 3.8 [facility] DEPARTMENT OF PATHOLOGY AND GENOMIC MEDICINE Alkaline phosphatase 73 40 - 129 U/L [facility] DEPARTMENT OF PATHOLOGY AND GENOMIC MEDICINE AST 18 10 - 50 U/L [facility] DEPARTMENT OF PATHOLOGY AND GENOMIC MEDICINE ALT 8 5 - 50 U/L [facility] DEPARTMENT OF PATHOLOGY AND GENOMIC MEDICINE Total bilirubin 1.6 (H) 0.0 - 1.2 mg/dL [facility] DEPARTMENT OF PATHOLOGY AND GENOMIC MEDICINE Specimen Plasma specimen Performing Organization Address City/State/Zipcode Phone Number [facility] DEPARTMENT OF PATHOLOGY AND [address] [place] [address] [facility] NM Bone Scan 3 Phase (11/02/2017 5:19 PM) Narrative Performed At PROCEDURE: NM BONE SCAN 3 PHASE [facility] INDICATION: L S-spine fxpathological COMPARISON: CT lumbar spine 10/28/2017 TECHNIQUE: The patient was injected with 25 mCi of [id number] and a 3-phase bone scan of the lumbar spine was performed. Immediate blood-flow and blood-pool images were followed by delayed images acquired approximately 3 hours later. Delayed whole-body imaging was also performed. FINDINGS: There is no focal hyperemia or soft tissue activity localizing to the lumbar spine. Delayed images reveal no suspicious osteoblastic activity along the lumbar spine. Mild to moderate activity centered in the T10 and in the upper thoracic approximately T2 spine is most consistent with degenerative arthropathy versus prior trauma. Degenerative changes are noted in the hips and joints of the upper and lower extremities. Moderately distended urinary bladder containing excreted tracer partially obscures the central bony pelvis. IMPRESSION: 1.No definite scintigraphic evidence of an acute fracture in the lumbar spine. 2.Although the sacrum is partially obscured by excreted tracer in a moderately distended urinary bladder, there is no focal hyperemia or soft tissue activity in this region. 3.Degenerative arthropathy as described above. [facility]-[id number] Procedure Note Interface, Radiology Results [facility] - 11/02/2017 5:39 PM CDT PROCEDURE: NM BONE SCAN 3 PHASE INDICATION: L S-spine fx pathological COMPARISON: CT lumbar spine 10/28/2017 TECHNIQUE: The patient was injected with 25 mCi of [id number] and a 3-phase bone scan of the lumbar spine was performed. Immediate blood-flow and blood- pool images were followed by delayed images acquired approximately 3 hours later. Delayed whole-body imaging was also performed. FINDINGS: There is no focal hyperemia or soft tissue activity localizing to the lumbar spine. Delayed images reveal no suspicious osteoblastic activity along the lumbar spine. Mild to moderate activity centered in the T10 and in the upper thoracic approximately T2 spine is most consistent with degenerative arthropathy versus prior trauma. Degenerative changes are noted in the hips and joints of the upper and lower extremities. Moderately distended urinary bladder containing excreted tracer partially obscures the central bony pelvis. IMPRESSION: 1. No definite scintigraphic evidence of an acute fracture in the lumbar spine. 2. Although the sacrum is partially obscured by excreted tracer in a moderately distended urinary bladder, there is no focal hyperemia or soft tissue activity in this region. 3. Degenerative arthropathy as described above. [id number] Performing Organization Address City/State/Zipcode Phone Number [facility] [address] [place] [address] CT Post Myelogram Lumbar (10/30/2017 4:39 PM) Narrative Performed At EXAMINATION: CT POST MYELOGRAM LUMBAR [facility] CLINICAL HISTORY: [id number] red flagsno prior management COMPARISON:unenhanced lumbar spine ct 10/28/17 TECHNIQUE: Axial postintrathecal contrast enhanced images of the lumbar spine were obtained with coronal and sagittal MIP reconstructed imaging. CT imaging was performed with iterative reconstruction technique and/or automated exposure control to reduce radiation dose. FINDINGS: For the purposes of this dictation, the last well-defined interspace is called L5-S1. The bones are osteopenic. Redemonstration of multiple compression deformities of the lumbar vertebral bodies worst at L3 and L4, no retropulsion. There is mild loss of the normal lumbar lordosis. There is multilevel disc degeneration with disc vacuum phenomenon at L5-S1 and less so at L4-L5. The conus medullaris terminates at L1 level. There is redundancy of the cauda equina nerve roots above L3-L4 likely secondary to spinal stenosis. Initial CT demonstrates myelographic block at L3-L4. Patient unable to ambulate so patient was placed in sitting position and delayed scan demonstrated intrathecal contrast below L3-4. At L1-L2, disc bulge along with mild facet arthropathy. No significant central spinal stenosis. Mild right subarticular zone narrowing. No significant neural foraminal narrowing. At L2-L3, disc bulge eccentric to the right along with mild facet arthropathy and ligamentum flavum thickening results in mild central canal narrowing. There is mild right greater than left subarticular zone narrowing. There is mild right neural foraminal narrowing and mild to moderate left neural foraminal narrowing At L3-L4, disc bulge along with ligamentum flavum thickening and facet arthropathy results in marked spinal stenosis. There is moderate to marked left and moderate right neural foraminal narrowing with possible impingement of the exiting left L3 nerve root. At L4-L5, there is disc bulge along with ligamentum flavum thickening and facet arthropathy which results results in moderate central spinal stenosis and bilateral subarticular recess stenosis. There is moderate to marked left and marked right neural foraminal narrowing with probable impingement of the exiting right L4 nerve root. At L5-S1, disc bulge contacts the traversing S1 nerve roots. No significant central spinal stenosis. Mild facet arthropathy. Mild neural foraminal narrowing. Mild sacroiliac degenerative changes. There is atherosclerosis of the abdominal aorta and its branches. 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 Myelographic block at this level on the fluoroscopic myelogram and initial CT. After placing patient in sitting position, delayed CT demonstrated intrathecal contrast below L3-4. Redundancy of the cauda equina nerve roots above this level likely secondary to spinal stenosis. Multilevel neural foraminal narrowing as detailed probably worst at L4-L5 on the right. Bilateral subarticular zone stenosis at L4-L5 as well. [facility]-[id number] Procedure Note [facility], Radiology Results - 10/30/2017 6:31 PM CDT EXAMINATION: CT POST MYELOGRAM LUMBAR CLINICAL HISTORY: Radiculopathy 6wks no red flags no prior management COMPARISON: unenhanced lumbar spine ct 10/28/17 TECHNIQUE: Axial postintrathecal contrast enhanced images of the lumbar spine were obtained with coronal and sagittal MIP reconstructed imaging. CT imaging was performed with iterative reconstruction technique and/or automated exposure control to reduce radiation dose. FINDINGS: For the purposes of this dictation, the last well-defined interspace is called L5-S1. The bones are osteopenic. Redemonstration of multiple compression deformities of the lumbar vertebral bodies worst at L3 and L4, no retropulsion. There is mild loss of the normal lumbar lordosis. There is multilevel disc degeneration with disc vacuum phenomenon at L5-S1 and less so at L4-L5. The conus medullaris terminates at L1 level. There is redundancy of the cauda equina nerve roots above L3-L4 likely secondary to spinal stenosis. Initial CT demonstrates myelographic block at L3-L4. Patient unable to ambulate so patient was placed in sitting position and delayed scan demonstrated intrathecal contrast below L3-4. At L1-L2, disc bulge along with mild facet arthropathy. No significant central spinal stenosis. Mild right subarticular zone narrowing. No significant neural foraminal narrowing. At L2-L3, disc bulge eccentric to the right along with mild facet arthropathy and ligamentum flavum thickening results in mild central canal narrowing. There is mild right greater than left subarticular zone narrowing. There is mild right neural foraminal narrowing and mild to moderate left neural foraminal narrowing At L3-L4, disc bulge along with ligamentum flavum thickening and facet arthropathy results in marked spinal stenosis. There is moderate to marked left and moderate right neural foraminal narrowing with possible impingement of the exiting left L3 nerve root. At L4-L5, there is disc bulge along with ligamentum flavum thickening and facet arthropathy which results results in moderate central spinal stenosis and bilateral subarticular recess stenosis. There is moderate to marked left and marked right neural foraminal narrowing with probable impingement of the exiting right L4 nerve root. At L5-S1, disc bulge contacts the traversing S1 nerve roots. No significant central spinal stenosis. Mild facet arthropathy. Mild neural foraminal narrowing. Mild sacroiliac degenerative changes. There is atherosclerosis of the abdominal aorta and its branches. 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 Myelographic block at this level on the fluoroscopic myelogram and initial CT. After placing patient in sitting position , delayed CT demonstrated intrathecal contrast below L3-4. Redundancy of the cauda equina nerve roots above this level likely secondary to spinal stenosis. Multilevel neural foraminal narrowing as detailed probably worst at L4-L5 on the right. Bilateral subarticular zone stenosis at L4-L5 as well. [id number] Performing Organization Address City/State/Zipcode Phone Number [facility] [address] [place] [address] IR Myelogram Lumb Incl Inj W S&I (10/30/2017 2:35 PM) Narrative Performed At EXAMINATION:IR MYELOGRAM LUMB INCL INJ W S&I [facility] CLINICAL HISTORY:RLE radicular pain COMPARISON:None. TECHNIQUE: After informed consent was obtained, the patient was placed prone on the fluoroscopy table. The back was prepped and draped in sterile manner.1% buffered lidocaine was used for local anesthesia. Under fluoroscopic guidance, a 22-gauge needle was advanced percutaneously into the spinal subarachnoid space via interlaminar approach at L2-3 until free-flowing CSF returned from the hub. Subsequently,12-mL of iohexol 240was instilled into the thecal sac. The needle was removed. Multiple myelographic projections of the lumbarspine were obtained. The patient tolerated procedure well with no immediate complication. Total fluoroscopy time was 46 seconds. IMPRESSION: Redemonstration of multiple compression deformities of lumbar vertebral bodies worst at L3. Atherosclerosis of the abdominal aorta and its branches. Upper lumbar disc bulges indent the ventral thecal sac. There is myelographic block at L3-L4 indicative of significant stenosis. There is redundancy of the cauda equina nerve roots above L3-L4 likely reflecting spinal stenosis as well. Patient will be placed in lateral position and in slight reverse Trendelenburg before CT. Please see CT lumbar myelogram report for details. [id number] Procedure Note Interface, Radiology Results Incoming - 10/30/2017 6:32 PM CDT EXAMINATION: IR MYELOGRAM LUMB INCL INJ W S&I CLINICAL HISTORY: RLE radicular pain COMPARISON: None. TECHNIQUE: After informed consent was obtained, the patient was placed prone on the fluoroscopy table. The back was prepped and draped in sterile manner. 1% buffered lidocaine was used for local anesthesia. Under fluoroscopic guidance, a 22 -gauge needle was advanced percutaneously into the spinal subarachnoid space via interlaminar approach at L2-3 until free-flowing CSF returned from the hub. Subsequently,12 -mL of iohexol 240 was instilled into the thecal sac. The needle was removed. Multiple myelographic projections of the lumbar spine were obtained. The patient tolerated procedure well with no immediate complication. Total fluoroscopy time was 46 seconds. IMPRESSION: Redemonstration of multiple compression deformities of lumbar vertebral bodies worst at L3. Atherosclerosis of the abdominal aorta and its branches. Upper lumbar disc bulges indent the ventral thecal sac. There is myelographic block at L3-L4 indicative of significant stenosis. There is redundancy of the cauda equina nerve roots above L3-L4 likely reflecting spinal stenosis as well. Patient will be placed in lateral position and in slight reverse Trendelenburg before CT. Please see CT lumbar myelogram report for details. [facility]-[id number] Performing Organization Address [facility]/Zipcode Phone Number [facility] [address] [place] [address] Platelet function P2Y12 (10/28/2017 11:45 PM) Platelet function P2Y12 [address] [facility] DEPARTMENT OF Comment: PATHOLOGY AND GENOMIC Test results are reported in P2Y12 Reaction Units (PRU). MEDICINE Platelet Function P2Y12 indicates the extent of platelet aggregation in the presence of P2Y12 antagonist. Definitive therapeutic reference ranges have not been established for this test. For patients on clopidogrel, clinical studies have shown that a P2Y12 result above 230 to 240 PRU is associated with an increase risk of arterial thrombosis, while a result less than 180 PRU is associated with an increased risk of bleeding. Test results may be adversely affected by therapy with the GPIIb/IIIa inhibitors.Drugs that affect platelet function may be detected up to 14 days after ingestion.The platelet function recovery time varies among individuals and is longer for patients with renal dysfunction.Other test limitations include patients with low hematocrit values or low platelet counts. This test is not intended for evaluation of patients with inherited platelet disorders. Specimen Blood Performing Organization Address [facility]/Zipcode Phone Number [facility] DEPARTMENT OF PATHOLOGY AND [address] [place] [address] Pelvis Wo Contrast (10/28/2017 6:30 PM) Narrative Performed At CT PELVIS WO CONTRAST [facility] CLINICAL HISTORY:right hip pain TECHNIQUE: Multidetector CT examination of the pelvis was performed following without contrast with automated exposure control and/or iterative reconstruction techniques to radiation dose. COMPARISON:None. FINDINGS: VISCERA:Urinary bladder is relatively distended. Prostate is mildly enlarged. BOWEL:Moderate gas noted if through the rectum. No wall thickening or inflammatory changes in the bowel. LYMPH NODES:No enlarged pathologic lymph nodes are identified in the pelvis. FLUID COLLECTIONS:None BONES:Bones are severely demineralized. This may limit fracture detection. Within limits, no fracture of the pelvis is identified. The femoral heads are well-seated in the acetabula bilaterally with mild to moderate arthritic changes more prominent on the right than left. There is no osteonecrosis. Given osteoporosis, if occult osseous pathology is thought likely, MR may be of value for further evaluation. SPINE: There are advanced compression deformities involving the lumbar vertebra; see CT lumbar spine reported separately IMPRESSION: No fracture of the right hip or pelvis. Please see report. Thank you for allowing us to participate in the care of your patient. [facility]-[id number] Procedure Note Hm Interface, Radiology Results Incoming - 10/28/2017 6:[address] PELVIS WO CONTRAST CLINICAL HISTORY: right hip pain TECHNIQUE: Multidetector CT examination of the pelvis was performed following without contrast with automated exposure control and/or iterative reconstruction techniques to radiation dose. COMPARISON: None. FINDINGS: VISCERA: Urinary bladder is relatively distended. Prostate is mildly enlarged. BOWEL: Moderate gas noted if through the rectum. No wall thickening or inflammatory changes in the bowel. LYMPH NODES: No enlarged pathologic lymph nodes are identified in the pelvis. FLUID COLLECTIONS: None BONES: Bones are severely demineralized. This may limit fracture detection. Within limits, no fracture of the pelvis is identified. The femoral heads are well-seated in the acetabula bilaterally with mild to moderate arthritic changes more prominent on the right than left. There is no osteonecrosis. Given osteoporosis, if occult osseous pathology is thought likely, MR may be of value for further evaluation. SPINE: There are advanced compression deformities involving the lumbar vertebra ; see CT lumbar spine reported separately IMPRESSION: No fracture of the right hip or pelvis. Please see report. Thank you for allowing us to participate in the care of your patient. [id number] Performing Organization Address City/State/Zipcode Phone Number [facility] [address] [place] [address] after 11/30/2016 Insurance Payer Benefit Plan / Group Subscriber ID Type Phone Address JENNY ALVARADO [facility] xxxxxxxxx O [address] [place] [address]
[2017-12-01] MEDS ORDERED: CEFTRIAXONE/SWI 1gm 1 GM/10 ML SYR IV ONE (16:00)
[2017-12-01] MEDS: ACETAMINOPHEN 500 MG TAB PO PRN (16:09)
[2017-12-01 16:12] LABS: Absolute Lymphocytes (CBC) 1.6 K/uL (0.7-4.9); Absolute Monocytes 0.9 K/uL (0.1-1.3); Basophils % 0.5 % (0-1.3); Eosinophils % 0.4 % (0-4.4); Hematocrit 31.2 % (39.6-49.0); MCH 30.2 pg (27.0-35.0); MCV 90.4 fL (80-100); MPV 6.9 fL (7.6-11.3); Monocytes % 7.7 % (3.3-12.3); RBC Red Blood Cell Count 3.45 M/uL (4.33-5.43)
[2017-12-01 16:42] LABS: Albumin 2.7 g/dL (3.4-5.0); Potassium 4.5 mmol/L (3.5-5.1); Protein, Total 7.5 g/dL (6.4-8.2)
[2017-12-01 18:45] LABS: Urine Appearance TURBID; Urine Bilirubin NEGATIVE (NEG); Urine Blood 2+ (NEG); Urine Color YELLOW; Urine Glucose NEGATIVE (NEG); Urine Protein 2+ (NEG)
[2017-12-01 18:53] LABS: Urine Microscopic Reflex ORDER UMIC
[2017-12-01 19:02] LABS: Urine Bacteria 20-50 /HPF (NONE SEEN)
[2017-12-01 19:03] LABS: Urine Culture Reflex Order NOT NEEDED
[2017-12-01] MEDS ORDERED: DOCUSATE NA/SENNA CONC 1 TAB PO PRN (20:57)
--- NOTE | 2017-12-01 21:41 | RAD REPORT ---
EXAM DESCRIPTION: CT - Abdomen Pelvis Wo Contrast - 12/01/2017 6:10 pm CLINICAL HISTORY: Abdominal pain genitourinary tract infection COMPARISON: May 2016 TECHNIQUE: Computed axial tomography of the abdomen and pelvis was obtained. IV and oral contrast we re not requested. All CT scans are performed using dose optimization technique as appropriate and may include automated exposure control or mA/KV adjustment according to patient size. FINDINGS: The evaluation of solid organs, vessels and bowel is limited secondary to the lack of con trast administration. The liver, spleen, and adrenals appear grossly normal. The pancreas is atrophic. Tiny bilateral renal calculi are present within the parenchyma. Extrarenal pelves are present. There is dilatation of the ureters to the level of the bladder. Mild bilateral hydronephrosis is seen. The bladder is distended. There is no evidence of diverticulitis. A moderate amount of stool is present throughout the colon. P ostsurgical changes involve the lumbar spine. The gallbladder is borderline distended IMPRESSION: Nonobstructing bilateral renal calculi. Mild hydronephrosis with dilatation of the entire ureters bilaterally. This may be secondary to the b ladder being distended. Bilateral vesicoureteral reflux is another consideration. Obstruction of the ureteral vesicle junction bilaterally although possible is considered less likely Borderline gallbladder distention
[2017-12-01] MEDS: CARBIDOPA/LEVODOPA 25/100 TAB PO SCH (21:54)
[2017-12-01] MEDS: clonazePAM 0.5 MG TAB PO SCH (21:54)
[2017-12-01] MEDS: AMANTADINE 100 MG CAP PO SCH (21:54)
[2017-12-02] MEDS: ASPIRIN EC 81 MG TAB PO SCH (09:11)
[2017-12-02] MEDS: CARBIDOPA/LEVODOPA 25/100 TAB PO SCH ×4 (09:11→20:59)
[2017-12-02] MEDS: AMANTADINE 100 MG CAP PO SCH ×3 (09:12→20:59)
[2017-12-02] MEDS: TRAMADOL HCL 50 MG TAB PO PRN ×2 (11:41→22:52)
[2017-12-02] MEDS: TAMSULOSIN 0.4 MG SR CAP PO SCH (11:41)
[2017-12-02] MEDS: CEFTRIAXONE/SWI 1gm 1 GM/10 ML SYR IVP SCH (18:00)
--- NOTE | 2017-12-02 20:35 | CON ---
History Of Present Illness: This is a pleasant gentleman who is 76 years old, patient of Dr. Sams, who fell about 5 weeks ago, had some back injury. He subsequently underwent back surgery that was co mplicated by a clot, had to go back for evacuation. He has been in urinary retention since for about a month, then he came off the catheter at [facility] about a week ago and was voiding. Apparently, fermin pulliam had tamsulosin there on board, but when he was sent home, he was not sent home with any tamsulosi n. He developed a urinary tract infection and urinary retention. CT scan showed bilateral hydroneph rosis going to the bladder. UA shows urinary tract infection. Cultures are pending. He has been pl aced on Levaquin, so far pending the culture results. His creatinine on admission was 1.8 with a GFR of 37. UA showed positive nitrites and urine culture growing 10 to the 5th colony-forming units. Fermin pulliam say prior to a month ago, he was voiding completely normal at home, no problems, but lately over the weekend there was some odor in the urine and it was cloudy, he notes to have a temperature to 101 .2. He does not drink much water, drinks only about 500 cc of liquid per day. I have told him to wo rk on that. He needs about 2 L to 3 L per day. Past Medical History: Enlarged prostate, Parkinson disease. No hypertension. No diabetes. Past Surgical History: TURP by Dr. Santos years ago, appendectomy, brain stimulator x2 for Parkinso n disease and recent back surgery. Medications: Parkinson disease medications and aspirin. Home medications, Lyrica, Lasix, Synthroid, Ambien, Plavix, alendronate, tramadol, Crestor, losartan, Daliresp, hydralazine, Tylenol, Spiriva, benzonatate, D3, albuterol, potassium, ipratropium, arformo terol, prednisone, metoprolol, citalopram. Allergies: CODEINE CAUSES HYPERGLYCEMIA, STADOL MAKES HIM GO CRAZY. Social History: Lives at home with . Occasional alcohol use, but not a drinker. No tobacco smo veto. No IV drug use. Family History: Diabetes runs in the family. Review of Systems: Ten-point review only reveals some chronic cough, constipation, which he takes a laxative for, and ba ck surgery as mentioned above, otherwise negative. Physical Examination: General: The patient is lying in bed, has some shakes, parkinsonian shakes. is present. Anoth er friend is present in the room. Vital Signs: 97.5, pulse 75, respirations 20, blood pressure 142/63, saturations 100%. HEENT: Atraumatic, normocephalic. Lungs: Clear. Heart: S1, S2. Abdomen: Soft. Nontender. : Both testicles were descended. Nontender. No masses. He has a Jimenez catheter in the bladder v ia the penis draining clear urine. XIMENA reveals an enlarged prostate, possible 40-45 g prostate, whic h is broad. Laboratory Data: Revealed as above. He has a white count of 11.6, H and H 10 and 31, platelet count 215. Chemistries; sodium 137, potassium 4.5, chloride 107, carbon dioxide 22, BUN 20, creatinine 1. 8, GFR 37, glucose 99, calcium 8.8. LFTs normal. PSA 11.4 with UTI present. UA 2+ blood, positive nitrite, positive esterase 3+, rbc's 5-10, wbc's, greater than 50 cm, epithelial cell less than 5, ba cteria less than 20-50. Urine culture is growing gram-negative rods. Assessment: Urinary tract infection, urinary retention, status post back surgery. Continue IV antib iotics. Continue wait for culture and sensitivity. prostate-specific antigen will be high in the fa ce of infection right now, so it is most likely a false positive prostate-specific antigen. We will need to treat the urinary tract infection and repeat the prostate-specific antigen in about a month. He is going to need cystoscopy, uroflow, and evaluate his lower urinary tract, make sure he does not have obstruction, part of retention may be due to the recent surgery he has had also. CECILIA/JAM Voice ID: [id number] Report ID: [id number]
[2017-12-02] MEDS: clonazePAM 0.5 MG TAB PO SCH (20:59)
[2017-12-02] MEDS: ENSURE HIGH PROTEIN 237 ML CAN PO SCH (20:59)
[2017-12-03] MEDS: TRAMADOL HCL 50 MG TAB PO PRN ×2 (06:06→20:21)
--- NOTE | 2017-12-03 07:28 | HP ---
Date of Admission: 12/01/2017 Chief Complaint: Fever, chills, rigors. History Of Present Illness: A 76-year-old male was brought to the office with history of temperature of 102, fever, chills, rigors, and back pain. The patient had a urine exam done in the office. He had evidence of UTI with symptoms of high fever, chills, rigors, as well as back pain. The patient i s admitted with the diagnosis of pyelonephritis. The patient denied any history of nausea or vomitin g. Past Medical History: Positive for Parkinson disease, history of prostatic problems, history of DVT, history of urinary retention related to prostate issues. Surgical History: Positive for appendectomy, deep brain stimulator, prostatic surgery in the past. Family History: Noncontributory. Personal History: Nonsmoker. Allergies: CODEINE AND BUTORPHANOL. Review of Systems: No history of chest pain or shortness of breath. Physical Examination: General: Revealed a 76-year-old male with obvious Parkinson's tremor. Vital Signs: Temperature in the office was 101. Vital signs otherwise normal. HEENT: Evidence of head tremors noted. Neck: Supple. JVD negative. Chest: Clear. Heart: Regular. Abdomen: Soft. Back: Recent back surgery site noted. Extremities: No edema. Neurological: Evidence of Parkinson disease with tremors. Laboratory Data: White count 11.6, hemoglobin 10.4. Chem profile; BUN 20, creatinine 1.8. PSA 11.4 , alkaline phosphatase 173. Urinalysis; evidence of pyuria, bacteriuria. CT scan of the abdomen showed bilateral hydronephrosis. Assessment: 1.Probable pyelonephritis. 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 3.Severe Parkinson disease. 4.Recent back surgery for kyphoplasty. Plan: The patient is started on Rocephin and Jimenez catheter has been inserted. Urology consultation done. CONSUELO/JAM Voice ID: [id number]
[2017-12-03] MEDS: ASPIRIN EC 81 MG TAB PO SCH (08:01)
[2017-12-03] MEDS: TAMSULOSIN 0.4 MG SR CAP PO SCH (08:01)
[2017-12-03] MEDS: CEFTRIAXONE/SWI 1gm 1 GM/10 ML SYR IVP SCH (08:01)
[2017-12-03] MEDS: CARBIDOPA/LEVODOPA 25/100 TAB PO SCH ×4 (08:01→20:21)
[2017-12-03] MEDS: ENSURE HIGH PROTEIN 237 ML CAN PO SCH ×2 (08:02→20:20)
[2017-12-03] MEDS: AMANTADINE 100 MG CAP PO SCH ×3 (08:02→20:21)
[2017-12-03] MEDS ORDERED: CEFTRIAXONE 1 GM/NS 50 ML 1 GM/50 ML BAG IV SCH (09:00)
[2017-12-03] MEDS: NACHLORIDE 0.45% 1,000 ML IV SCH ×2 (16:52→20:20)
--- NOTE | 2017-12-03 18:30 | PN ---
The patient is afebrile today. His Jimenez catheter is draining. Urology consult recommendations note d. The patient will be continued on IV antibiotic pending the urine culture report. The patient marlene y likely would require some procedures in the future to override the bladder outlet obstruction. CONSUELO/JAM Voice ID: [id number] Report ID: [id number]
[2017-12-03] MEDS: clonazePAM 0.5 MG TAB PO SCH (20:21)
[2017-12-04] MEDS: TRAMADOL HCL 50 MG TAB PO PRN ×3 (01:54→17:39)
[2017-12-04] MEDS: ACETAMINOPHEN 500 MG TAB PO PRN ×2 (05:10→20:15)
[2017-12-04] MEDS: ASPIRIN EC 81 MG TAB PO SCH (09:21)
[2017-12-04] MEDS: TAMSULOSIN 0.4 MG SR CAP PO SCH (09:21)
[2017-12-04] MEDS: CARBIDOPA/LEVODOPA 25/100 TAB PO SCH ×4 (09:21→20:16)
[2017-12-04] MEDS: ENSURE HIGH PROTEIN 237 ML CAN PO SCH ×2 (09:21→20:16)
[2017-12-04] MEDS: CEFTRIAXONE/SWI 1gm 1 GM/10 ML SYR IVP SCH (09:21)
[2017-12-04] MEDS: AMANTADINE 100 MG CAP PO SCH ×3 (09:21→20:16)
[2017-12-04 15:14] VITALS: O2SAT 95
[2017-12-04 16:33] VITALS: BMI 18.1
--- NOTE | 2017-12-04 18:36 | PN ---
Subjective: The patient is doing well. The patient has obstructive uropathy, Parkinson disease. He is on tamsulosin. His urine culture grew E. coli and it is sensitive to the Rocephin which he is on as well as sensitive to Bactrim, nitrofurantoin, Levaquin, and ciprofloxacin, which he will be able to go home on home eventually. He will also need a PSA to be done sometime in the future for this an d we will continue medical management whenever Dr. Flaquita cabralems he is ready to go home. He can follow up with me for cystoscopy and uroflow. He has no recent labs today to check. He did have a PSA scr een that was 11.4 on 12/02/2017. So with the face of the UTI, I could explain the elevation there. He will need to have it repeated in a few weeks. CECILIA/JAM Voice ID: [id number] Report ID: [id number]
[2017-12-04] MEDS: NACHLORIDE 0.45% 1,000 ML IV SCH (20:15)
[2017-12-04] MEDS: clonazePAM 0.5 MG TAB PO SCH (20:16)
[2017-12-05] MEDS: TRAMADOL HCL 50 MG TAB PO PRN (01:32)
[2017-12-05 04:55] VITALS: TEMP 98.8
[2017-12-05] MEDS ORDERED: SMZ./TMP. 800/160 MG TABLET PO SCH (09:00)
[2017-12-05 09:21] VITALS: BP 117/60
[2017-12-05] MEDS: ENSURE HIGH PROTEIN 237 ML CAN PO SCH (09:55)
[2017-12-05] MEDS: ASPIRIN EC 81 MG TAB PO SCH (09:56)
[2017-12-05] MEDS: TAMSULOSIN 0.4 MG SR CAP PO SCH (09:56)
[2017-12-05] MEDS: AMANTADINE 100 MG CAP PO SCH (09:56)
[2017-12-05] MEDS: CARBIDOPA/LEVODOPA 25/100 TAB PO SCH (09:57)
--- NOTE | 2017-12-05 12:59 | PN ---
Subjective: The patient is sleeping. Objective: The patient grew MRSA from sputum. Has E coli in the urine, both are sensitive to Bactri m. I have stopped IV Rocephin and switched him to Bactrim p.o. Continue catheter drainage. Assessment: Methicillin-resistant Staphylococcus aureus, sputum. Escherichia coli, urine. Plan: Treatment for both, Bactrim p.o. DS. CECILIA/JAM Voice ID: [id number] Report ID: [id number]
== END 2017-12-05 11:32 | disposition home or self-care (01) ==
LOC: 4TH 14:49
PROVIDERS: ADMIT Internal Medicine; ATTEND Internal Medicine
DX: N39.0 Urinary tract infection, site not specified (principal); B96.20 Unspecified Escherichia coli [E. coli] as the cause of diseases classified elsewhere; N13.9 Obstructive and reflux uropathy, unspecified; G20 Parkinson's disease; Z86.718 Personal history of other venous thrombosis and embolism
CPT/HCPCS: 36415; 74176; 80053; 85025; 87040 ×2; 87070; 87077 ×2; 87086; 87088; 87186 ×2; 87205 ×2; G0103; G0378; G0379; J0696 ×4; 81003; 81015

== ENCOUNTER 2020-04-18 12:16 | Emergency (ER) | payer OTHER ==
--- OUTSIDE RECORDS SUMMARY | 2020-04-18 12:19 | XMS REPORT | Clinical Summary ---
:1940 Author Organization [facility] Address [address] [place] [id number] Care Team Providers Name Role Phone MD Lizzie Primary Care Provider Allergies Active Allergy Reactions Severity Noted Date Comments Codeine Other (See Comments) Low 08/29/2016 dizzine ss Butorphanol Tartrate Other (See Comments) 08/29/2016 States it was given in the emergency r oom and after a few min utes patient became very hot and then unresp onsive Medications Medication Sig Dispensed Refills Start Date End Date Status carbidopa-levodopa Take 1 tablet by 4 08/13/2016 Active (SINEMET) 25-100 mg mouth 4 (four) per tablet times a day. AmANTadine Take 100 mg by 2 07/26/2016 Act leatha (SYMMETREL) 100 mg mouth 3 (three) capsule times a day. clonAZEPAM Take 0.5 mg by 3 08/22/2016 Act leatha (KlonoPIN) 0.5 MG mouth nightly. tablet fluticasone 2 sprays (100 15.8 mL 0 10/07/2018 Act leatha propionate (FLONASE) mcg total) by 50 mcg/actuation Each Nare route nasal spray daily. nystatin-triamcinolo Apply to 15 g 0 06/04/2018 06/04/19 20 ne (MYCOLOG II) affected area 100,000-0.1 unit/g-% daily cream calcitonin, salmon, 1 spray (0.09 mL 3.7 mL 12 10/06/2018 (MIACALCIN) 200 total) into each unit/actuation nasal nostril daily. spray calcium Take 1 tablet by 30 tablet 11 10/07/2018 10/07/2019 E xpired carbonate-vitamin D3 mouth daily. 500 mg-200 unit per tablet famotidine (PEPCID) Take 1 tablet 60 tablet 10/06/201810/05 20 MG tablet (20 mg total) by mouth 2 (two) times a day. gabapentin Take 1 capsule 90 capsule 10/06/2018 10/06/2019 E xpired (NEURONTIN) 100 mg (100 mg total) capsule by mouth 3 (three) times a day. sodium chloride 2 sprays into 15 mL 10/06/2018 0 (OCEAN) 0.65 % nasal each nostril as spray needed for rhinitis. Active Problems Problem Noted Date Mult fractures of thoracic spine, closed 09/30/2018 Compression fracture of body of thoracic vertebra 09/20 Back pain of lumbar region with sciatica 10/28/2017 Encounters Date Type Specialty Care Team Description 09/06/2019 Travel 09/05/2019 Emergency Emergency Medicine Jessica Javier-Catie Acute left ankle pain MD Catie (Primary Dx) after 04/18/2019 Surgical History Surgery Date Site/Laterality Comments APPENDECTOMY 03/23/1954 - 03/22/1955 DEEP BRAIN STIMULATOR 03/23/2004 - 2009 batte ry PLACEMENT 03/22/2005 replacement PROSTATE SURGERY 03/23/2014 - 03/22/2015 VASECTOMY 03/23/1979 - 03/22/1980 REPLACEMENT, NEUROSTIMULATOR 08/29/2016 Flank/N/A Pro cedure: DEEP BRAIN GENERATOR OR INFUSION PUMP STIMU LATOR BATTERY EXCHANGE ; Surg mandy: Rojas Abreu MD; [facility]; Service: Neurosu rgery; Laterality: N/A; Medical devices from this surgery are in the Implants section . BRAIN SURGERY KYPHOPLASTY 11/03/2017 Spine Lumbar/N/A Procedure: POSS L3-L4 KYPHOPLASTY, POS S L3-S1 DECOMPRESSION; Surgeon: Rojas monahan MD; Location: [facility]; Service: Neurosurgery; Laterality: N/A; LAMINECTOMY, LUMBAR 11/04/2017 Back/Posterior Procedure: L AMINECTOMY, LUMBAR FOR EPIDU RAL HEMATOMA L3-4; Surgeon: Rojas monahan MD; Location: [facility]; Service: Neurosurgery; Laterality: Post erior; Medical History Medical History Date Comments Parkinson disease (HCC) 1993 DVT (deep venous thrombosis) ([facility]) 05/2016 Hypoglycemia Shoulder fracture, left 2017 fell end of or beginning of july and broke his left s houlder, wore a sling for 5 months PE (pulmonary thromboembolism) ([facility]) 2016 2 w eeks after being treated for LLE DVT patient went to ER w ith c/o SOB but CT scan was negative, M D thinks it disolved, was in the hospital for 3 weeks Parkinson disease ([facility]) Social History Tobacco Use Types Packs/Day Years Used Date Never Smoker Smokeless Tobacco: Never Used Alcohol Use Drinks/Week oz/Week Comments Yes 1 Cans of beer 1.0 1 beer everynigh t Sex Assigned at Date Recorded Not on file Last Filed Vital Signs Vital Sign Reading Time Taken Comments Blood Pressure 165/78 09/05/2019 9:20 PM CDT Pulse 82 09/05/2019 9:20 PM CDT Temperature 37 C (98.6 F) 09/05/2019 12:52 PM CDT Respiratory Rate 18 09/05/2019 9:20 PM CDT Oxygen Saturation 99% 09/05/2019 9:20 PM CDT Inhaled Oxygen Concentration - - Weight 70.3 kg (155 lb) 09/05/2019 12:44 PM CDT Height 182.9 cm (6') 09/05/2019 12:44 PM CDT Body Mass Index 21.02 09/05/2019 12:44 PM CDT Plan of Treatment Health Maintenance Due Date Last Done Comments COVID-19 VACCINE (1 of 2) 1956 SHINGLES VACCINES (#1) 1992 65+ PNEUMOCOCCAL VACCINE (1 of 1 - PPSV23) 12/16/2007 INFLUENZA VACCINE 10/22/2019 Implants Implanted Type Area Business Services Analyst Device Shelf Model / Identifier Expiration Serial / Date Lot Device Vasclr Clsr Vasoactive Intstnl Peptd 6fr Angio- Seal - [id number] Cardiovascular N/A: 06/20/2018 [id number] / Implanted: 11/05/2017 at [facility] (Quantity not on file) Implants N/A / [id number] Device Vasclr Clsr Vasoactive Intstnl Peptd 6fr Angio- Seal - [id number] Cardiovascular N/A: 06/20/2018 [id number] / Implanted: 11/05/2017 at [facility] (Quantity not on file) Implants N/A / [id number] Neurostimulator Imp Activa Sc [id number] 1chnl Qplr - [id number] - [id number] Neurosurgical Right: [employer] 10/17/2017 [id number] / Implanted: Qty: 1 on 08/29/2016 by Rojas Abreu MD at [facility] Implants Chest NEUROMODULATION [id number] / NA Neurostimulator Imp Activa Sc [id number] 1chnl Qplr - [id number] - [id number] Neurosurgical Left: [employer] 12/04/2017 [id number] / Implanted: Qty: 1 on 08/29/2016 by Rojas Abreu MD at [facility] Implants Chest NEUROMODULATION [id number] / NA Deep Brain Stimulator-04/06/2005 Implanted: Qty: 2 on 04/06/2005 Procedures Procedure Name Priority Date/Time Associated Comments Diagnosis XR ANKLE 3+ VW LEFT STAT 09/05/2019 7:20 Resu lts for this PM CDT procedure are i n the results section. ECG 12-LEAD STAT 09/05/2019 6:45 Results for this PM CDT procedure are i n the results section. US ANKLE BRACHIAL STAT 09/05/2019 4:56 Result s for this INDEX PM CDT procedure are i n the results section. US DUPLEX ARTERIAL STAT 09/05/2019 4:56 Resul ts for this LOWER EXTREMITY LEFT PM CDT procedu re are in the results section. US DUPLEX VENOUS LOWER STAT 09/05/2019 4:55 R esults for this EXTREMITY LEFT PM CDT procedure are in the results section. XR FOOT 3+ VW LEFT STAT 09/05/2019 3:12 Resul ts for this PM CDT procedure are i n the results section. ESTIMATED GFR STAT 09/05/2019 2:04 Results fo r this PM CDT procedure are i n the results section. COMPREHENSIVE STAT 09/05/2019 2:04 Results fo r this METABOLIC PANEL PM CDT procedure ar e in the results section. HC COMPLETE BLD COUNT STAT 09/05/2019 2:04 Re sults for this W/AUTO DIFF PM CDT procedure are i n the results section. after 04/18/2019 Results XR Ankle 3+ Vw Left (09/05/2019 7:20 PM CDT) Specimen Narrative Performed At EXAMINATION: XR ANKLE 3 VW LEFT [facility] CLINICAL HISTORY: Ankle pain initial exam COMPARISON: No Prior IMPRESSION: 1.Soft tissue swelling of the ankle. No fractures or d islocations. Microvascular calcifications. Achilles t endinosis. No acute findings. RM-PRAJANNL Procedure Note Interface, Radiology Results Incoming - 09/05/2019 7:26 PM CDT EXAMINATION: XR ANKLE 3 VW LEFT CLINICAL HISTORY: Ankle pain initial e xam COMPARISON: No Prior IMPRESSION: 1.Soft tissue swelling of the ankle. No fractures or dislocations. Microvascular calcifications. Achilles tendinosis. No acute findings. RM-PRAJSL Performing Organization Address [facility]/ZIP Code Phon e Number [facility] [address] [place] [address] ECG 12 lead (09/05/2019 6:45 PM CDT) Pathologist [facility] [place] Ventricular rate 73 [facility] Atrial rate 73 [facility] VT interval 200 [facility] QRSD interval 82 [facility] QT interval 634 [facility] QTC interval 698 [facility]USE QRS axis 1 228 [facility] T wave axis 226 [facility] MUSE EKG impression Baseline artifact-Normal sin us rhythm-Nonspecific ST and T wave abnormality-Abnormal ECG-In automated comparison with ECG of 05-NOV-2017 08:22,- Previous ECG was in sinus rhythm, apparent after low-pass [facility] MUSE noise filtering- Specimen Narrative Performed At This result has an attachment that is no t available. Performing Organization Address City/[facility] Phon e Number [facility] [address] [place] [phone] Us ankle brachial index (09/05/2019 4:56 PM CDT) Specimen Narrative Performed At [facility] Vascular D iagnostic Laboratory Physiologi c Arterial Leg Report [id number] [facility], [facility] [address], [place] [address] Pat.Name: JESSIE FIELDS Pat.ID: [id number] .Date: 09/05/2019 Refer.MD: PHYSICIAN, EMERGENCY, MD Exam Time: 4:09:00 PM Study Type:P hysiologic Leg Height: 72in Weight: 72lb BSA: 1.38 m2 Ag e: 1940,78Y Sex: MALE Sonogr phr: Nails Vi, RVT Pat. Stat.:Outpatient Room: [facility] Vol: , [facility] - 4: [id number] Echo Event ID:[id number] Order ID: [id number] Reason for Study:Left leg pain. Procedures: Ankle/brachial pressures, Di git pressures, PPG waveform tracing, Segmental pressures Race: C SUMMARY: DOPPLER SIGNALS / ANALOG WAVEFORMS: DOPPLER SIGNALS ANALOG WAVEFORMS ARTERY RIGHT LEFT RIGHT LEFT Posterior Tibial Abnormal Absent Abnorma l Absent Dorsalis Pedis Abnormal Abnormal Abnorma l Abnormal SEGMENTAL PRESSURE (mmHg): RIGHT LEFT Brachial 174 Ankle DP 169 162 Ankle PT 129 0 Great Toe 114 100 ANKLE/BRACHIAL INDEX: RIGHT LEFT Dorsalis Pedis 0.98 0.94 Posterior Tibial 0.75 0 TOE/BRACHIAL INDEX: RIGHT LEFT 0.66 0.58 PRELIMINARY FINDINGS: 1. Right ankle/brachial index falls into moderate category on PT, and within normal limit on DP. 2. Left ankle/brachial index falls into mild category on DP, and unobtainable on PT due to absent Doppler signals of PT. 3. Right toe/brachial index is within no rmal limit. 4. Left toe/brachial index falls into mi ld category. PHYSICIAN INTERPRETATION: 1. Right ankle/brachial index falls into moderate category on PT, and within normal limit on DP. 2. Left ankle/brachial index falls into mild category on DP, and unobtainable on PT due to absent Doppler signals of PT. 3. Right toe/brachial index is within no rmal limit. 4. Left toe/brachial index falls into mi ld category. FINDINGS: Signed 09/05/2019 05:22 PM Eb Rodriguez MD, RPVI Procedure Note Interface, Radiology Results In - 2019 5:23 PM CDT Vascular Diagnostic Laboratory Physiologic Arterial Leg Report [id number] [facility], [facility] [address] , [place] [address] Pat.Name: JESSIE FIELDS Pat.I D: [id number] St.Date: 09/05/2019 Refer .MD: PHYSICIAN, EMERGENCY, MD Exam Time: 4:09:00 PM Study Type:Physiologic Leg Height: 72in Weigh t: 72lb BSA: 1.38 m2 Age: 11 1940,78Y Sex: MALE Sonog rphr: Nails Vi, RVT Pat. Stat.:Outpatient Room: [facility] Vol: , CPT - 4: 91834 Echo Event ID:[id number] Order ID: [id number] Reason for Study:Left leg pain. Procedures: Ankle/brachial pressures, Di git pressures, PPG waveform tracing, Segmental pressures Race: C SUMMARY: DOPPLER SIGNALS / ANALOG WAVEFORMS: DOPPLER SIGNALS ANALOG WAVEFORMS ARTERY RIGHT LEFT RIGHT LEFT Posterior Tibial Abnormal Absent Abnorma l Absent Dorsalis Pedis Abnormal Abnormal Abnorma l Abnormal SEGMENTAL PRESSURE (mmHg): RIGHT LEFT Brachial 174 Ankle DP 169 162 Ankle PT 129 0 Great Toe 114 100 ANKLE/BRACHIAL INDEX: RIGHT LEFT Dorsalis Pedis 0.98 0.94 Posterior Tibial 0.75 0 TOE/BRACHIAL INDEX: RIGHT LEFT 0.66 0.58 PRELIMINARY FINDINGS: 1. Right ankle/brachial index falls into moderate category on PT, and within normal limit on DP. 2. Left ankle/brachial index falls into mild category on DP, and unobtainable on PT due to absent Doppler signals of PT. 3. Right toe/brachial index is within no rmal limit. 4. Left toe/brachial index falls into mi ld category. PHYSICIAN INTERPRETATION: 1. Right ankle/brachial index falls into moderate category on PT, and within normal limit on DP. 2. Left ankle/brachial index falls into mild category on DP, and unobtainable on PT due to absent Doppler signals of PT. 3. Right toe/brachial index is within no rmal limit. 4. Left toe/brachial index falls into mi ld category. FINDINGS: Signed 09/05/2019 05:22 PM Eb Rodriguez MD, RPVI Performing Organization Address City/State/ZIP Code Phon e Number [facility] [address] duplex arterial lower extremity (09/05/2019 4:56 PM CDT) Specimen Narrative Performed At [facility] Vascular U ltrasound Laboratory Lower Extremity Arterial Duplex Report [address] [place] [address] Pat.Name: JESSIE FIELDS Pat.ID: [id number]Date: 09/05/2019 Refer.MD: PHYSICIAN, EMERGENCY, MD Exam Time: 3:29:00 PM Study Type:L E Arterial Height: 72in Weight: 155lb BSA: 1.91 m2 Ag e: 1940,78Y Sex: MALE Sonogr phr: Nails Vi, RVT Pat. Stat.:Outpatient Room: [facility] Vol: , [facility] - 4: [id number] Echo Event ID:[id number] Order ID: [id number] Reason for Study:Left leg pain. Procedures: Colorflow, Grayscale/2D, Pul sed wave Doppler Race: C SUMMARY: DUPLEX SCAN OBSERVATIONS: LEFT: There is smooth intimal lining see n in the common femoral artery, profunda femoris artery, superfi cial femoral artery. There is hard and calcified plaque seen in the po pliteal artery, tibial arteries, peroneal artery. Absent flow a nd Doppler signals are seen in the entire posterior tibial artery. Elev ated velocities are seen at proximal anterior tibial artery (118 cm/ sec to 418 cm/sec-ratio 3.54) . The mid and distal anterior tibial art letty are patent. PRELIMINARY FINDINGS: 1. 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 2. 50-75% stenosis of left proximal ante rior tibial artery (ratio 3.54). Result given to UYEN Barrientos at 16:30 PM o n 09/05/2019. PHYSICIAN INTERPRETATION: Arterial duplex examination of left lo wer extremity demonstrates occlusion of left posterior tibial arter y and a 50-75% stenosis of left proximal anterior tibial artery (ra erin 3.54). FINDINGS: MEASUREMENTS: DOPPLER Left ARMED CUSTOM PROTECTION OFFICER prox ARMED CUSTOM PROTECTION OFFICER prox PSV 87.1 cm/s Left Profunda Profunda PSV 75 cm/s Left SFA Dist SFA Dist PSV 45.7 cm/s Left SFA Mid SFA Mid PSV 108 cm/s Left SFA Prox SFA Prox PSV 78.3 cm/s Left Pop Dist Pop Dist PSV 52.6 cm/s Left Pop Prox Pop Prox PSV 57.8 cm/s Pop Prox PSV 57.8 cm/s Left ARMED CUSTOM PROTECTION OFFICER Dist ARMED CUSTOM PROTECTION OFFICER Dist PSV 87.1 cm/s Left TP Trunk Dist TP Trunk Dist P 75.5 cm/s Left CARRIAGE DOGGER Prox CARRIAGE DOGGER Prox PSV 0 cm/s Left CARRIAGE DOGGER Mid CARRIAGE DOGGER Mid PSV 0 cm/s Left CARRIAGE DOGGER Distal CARRIAGE DOGGER Distal PSV 0 cm/s Left Peroneal Prox Peroneal Prox P 87.5 cm/s Left Peroneal Mid Peroneal Mid PS 67.7 cm/s Left Peroneal Dist Peroneal Dist P 81.7 cm/s Left ANIKA Prox ANIKA Prox PSV 118 cm/s Left ANIKA Prox 1 ANIKA Prox 1 PSV 418 cm/s Left ANIKA Mid ANIKA Mid PSV 50.1 cm/s Left ANIKA Distal ANIKA Distal PSV 57.2 cm/s Signed 09/05/2019 05:25 PM Eb Rodriguez MD, RPVI Procedure Note Interface, Radiology Results In - 2019 5:25 PM CDT Vascular Ultrasound Laboratory Lower Extremity Arterial Duplex Report [address] [place] [address] Pat.Name: JESSIE FIELDS Pat.I D: [id number] St.Date: 09/05/2019 Refer .MD: PHYSICIAN, EMERGENCY, MD Exam Time: 3:29:00 PM Study Type:LE Arterial Height: 72in Weigh t: 155lb BSA: 1.91 m2 Age: 9 1940,78Y Sex: MALE Sonog rphr: Jesu Rios, MYLES Pat. Stat.:Outpatient Room: [facility] Vol: HV, CPT - 4: 18037 Echo Event ID:[id number] Order ID: [id number] Reason for Study:Left leg pain. Procedures: Colorflow, Grayscale/2D, Pul sed wave Doppler Race: C SUMMARY: DUPLEX SCAN OBSERVATIONS: LEFT: There is smooth intimal lining see n in the common femoral artery, profunda femoris artery, superfi cial femoral artery. There is hard and calcified plaque seen in the po pliteal artery, tibial arteries, peroneal artery. Absent flow a nd Doppler signals are seen in the entire posterior tibial artery. Elev ated velocities are seen at proximal anterior tibial artery (118 cm/ sec to 418 cm/sec-ratio 3.54) . The mid and distal anterior tibial art letty are patent. PRELIMINARY FINDINGS: 1. 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 2. 50-75% stenosis of left proximal ante rior tibial artery (ratio 3.54). Result given to UYEN Barrientos at 16:30 PM o n 09/05/2019. PHYSICIAN INTERPRETATION: Arterial duplex examination of left low er extremity demonstrates occlusion of left posterior tibial arter y and a 50-75% stenosis of left proximal anterior tibial artery (ra erin 3.54). FINDINGS: MEASUREMENTS: DOPPLER Left ARMED CUSTOM PROTECTION OFFICER prox ARMED CUSTOM PROTECTION OFFICER prox PSV 87.1 cm/s Left Profunda Profunda PSV 75 cm/s Left SFA Dist SFA Dist PSV 45.7 cm/s Left SFA Mid SFA Mid PSV 108 cm/s Left SFA Prox SFA Prox PSV 78.3 cm/s Left Pop Dist Pop Dist PSV 52.6 cm/s Left Pop Prox Pop Prox PSV 57.8 cm/s Pop Prox PSV 57.8 cm/s Left ARMED CUSTOM PROTECTION OFFICER Dist ARMED CUSTOM PROTECTION OFFICER Dist PSV 87.1 cm/s Left TP Trunk Dist TP Trunk Dist P 75.5 cm/s Left CARRIAGE DOGGER Prox CARRIAGE DOGGER Prox PSV 0 cm/s Left CARRIAGE DOGGER Mid CARRIAGE DOGGER Mid PSV 0 cm/s Left CARRIAGE DOGGER Distal CARRIAGE DOGGER Distal PSV 0 cm/s Left Peroneal Prox Peroneal Prox P 87.5 cm/s Left Peroneal Mid Peroneal Mid PS 67.7 cm/s Left Peroneal Dist Peroneal Dist P 81.7 cm/s Left ANIKA Prox ANIKA Prox PSV 118 cm/s Left ANIAK Prox 1 ANIKA Prox 1 PSV 418 cm/s Left ANIKA Mid ANIKA Mid PSV 50.1 cm/s Left ANIKA Distal ANIKA Distal PSV 57.2 cm/s Signed 09/05/2019 05:25 PM Eb Rodriguez MD, RPVI Performing Organization Address City/State/ZIP Code Phon e Number [facility] [address] [place] [address] duplex venous lower extremity (09/05/2019 4:55 PM CDT) Specimen Narrative Performed At [facility] Vascular U ltrasound Laboratory Lower Extr emity Venous Report [id number] [facility], [address], [place] [address] Pat.Name: JESSIE FIELDS Pat.ID: [id number]Date: 09/05/2019 Refer.MD: PHYSICIAN, EMERGENCY, Exam Time: 3:17:00 PM Study Type:L E Venous Height: 72in Weight: 155lb BSA: 1.91 m2 Ag e: 1940,78Y Sex: MALE Sonogr phr: Nails Vi, RVT Pat. Stat.:Outpatient Room: [facility] Vol: , CPT - 4: 67079 Echo Event ID:[id number] Order ID: [id number] Reason for Study:Left leg swelling. Procedures: Colorflow, Grayscale/2D, Pul sed wave Doppler Race: C SUMMARY: DUPLEX SCAN OBSERVATIONS Deep Veins Superficial Veins Right Left Right Left EIV GSV (prox) Normal CFV Normal Normal (above knee) Femoral Normal GSV (dist) Normal Profunda Normal (below knee) Popliteal Normal PT (prox) Normal SSV Not Visualiz ed PT (dist) Normal Peroneal Normal Gastrocs Normal RIGHT: There is normal compressibility with no evidence of echogenic material noted within the lumen of the c ommon femoral vein.Colorflow and Doppler signals are normal. LEFT: There is normal compressibility wi th no evidence of echogenic material noted within the lumen of the v isualized veins.Colorflow and Doppler signals are normal. PRELIMINARY FINDINGS 1. No evidence of venous thrombosis of t he visualized veins. PHYSICIAN INTERPRETATION Venous examination of the left lower ext remity and right groin demonstrated no evidence of venous throm bosis in the visualized veins. Normal compressibility and augmentation of all veins visualized. FINDINGS: Signed 09/05/2019 05:14 PM Eb Rodriguez MD, RPVI Procedure Note Interface, Radiology Results In - 2019 5:15 PM CDT Vascular Ultrasound Laboratory Lower Extremity Veno us Report [address] [address] , [place] [address] Pat.Name: JESSIE FIELDS Pat.I D: [id number] St.Date: 09/05/2019 Refer .MD: PHYSICIAN, EMERGENCY, MD Exam Time: 3:17:00 PM Study Type:LE Venous Height: 72in Weigh t: 155lb BSA: 1.91 m2 Age: 9 1940,78Y Sex: MALE Sonog rphr: Jesu Rios RVT Pat. Stat.:Outpatient Room: [facility] Vol: , [facility] - 4: [address]7530 Echo Event ID:[id number] Order ID: [id number] Reason for Study:Left leg swelling. Procedures: Colorflow, Grayscale/2D, Pul sed wave Doppler Race: C SUMMARY: DUPLEX SCAN OBSERVATIONS Deep Veins Superficial Veins Right Left Right Left EIV GSV (prox) Normal CFV Normal Normal (above knee) Femoral Normal GSV (dist) Normal Profunda Normal (below knee) Popliteal Normal PT (prox) Normal SSV Not Visualized PT (dist) Normal Peroneal Normal Gastrocs Normal RIGHT: There is normal compressibility with no evidence of echogenic material noted within the lumen of the c ommon femoral vein.Colorflow and Doppler signals are normal. LEFT: There is normal compressibility wi th no evidence of echogenic material noted within the lumen of the v isualized veins.Colorflow and Doppler signals are normal. PRELIMINARY FINDINGS 1. No evidence of venous thrombosis of t he visualized veins. PHYSICIAN INTERPRETATION Venous examination of the left lower ext remity and right groin demonstrated no evidence of venous throm bosis in the visualized veins. Normal compressibility and augmentation of all veins visualized. FINDINGS: Signed 09/05/2019 05:14 PM Eb Rodriguez MD, RPVI Performing Organization Address [facility] Phon e Number [facility] [address] [place] [address] XR Foot 3+ Vw Left (09/05/2019 3:12 PM CDT) Specimen Narrative Performed At EXAMINATION: XR FOOT 3 VW LEFT [facility] CLINICAL HISTORY: foot pain COMPARISON: none. IMPRESSION: 1.No displaced fracture or dislocation. Vascular calci fications are noted. No destructive osseous abnormalit ies. [facility]-[id number] Procedure Note Hm Interface, Radiology Results Incoming - 09/05/2019 3:17 PM CDT EXAMINATION: XR FOOT 3 VW LEFT CLINICAL HISTORY: foot pain COMPARISON: none. IMPRESSION: 1.No displaced fracture or dislocation. Vascular calcifications are noted. No destructive osseous abnormalities. [facility]-[id number] Performing Organization Address [facility] Phon e Number [facility] [address] [place] [address] Estimated GFR (09/05/2019 2:04 PM CDT) Estimated GFR 38 (A) mL/min/1.73 [facility] Comment: HOSPITAL Catergory Units Interpretation G1 >=90 Normal or high G2 60-89 Mildly decreased G3a 45-59 Mildly to moderately decreas ed G3b 30-44 Moderately to severely decre ased G4 15-29 Severely decreased G5 <15 Kidney failure The eGFR was calculated using the Chronic Kidney Disea se Epidemiology Collaboration (CKD-EPI) equation. Interpretation is based on recommendations of the National Kidney Foundation-Kidney Disease Outcomes [place] lity Initiative (NKF-KDOQI) published in 2014. Specimen Performing Organization Address [facility] Phon e Number [facility] DEPARTMENT OF PATHOLOGY AND [address] [place] [address] [phone] GENOMIC MEDICINE [address] [address] CBC with platelet and differential (09/05/2019 2:04 PM CDT) WBC 7.29 4.50 - 11.00 [facility] k/uL HOSPITAL RBC 5.09 4.40 - 6.00 [facility] m/uL [facility] HGB 15.7 14.0 - 18.0 [facility] g/dL [facility] HCT 48.2 41.0 - 51.0 % [facility] MCV 94.7 82.0 - 100.0 [facility] MCH 30.8 27.0 - 34.0 pg [facility] MCHC 32.6 31.0 - 37.0 [facility] gdL [facility] RDW - SD 49.0 37.0 - 55.0 fL [facility] MPV 9.3 8.8 - 13.2 [facility] Platelet count 207 150 - 400 k/uL [facility] Nucleated RBC 0.00 /100 WBC [facility] Neutrophils 54.9 39.0 - 69.0 % [facility] [facility] Lymphocytes 30.5 25.0 - 45.0 % [facility] Monocytes 11.7 (H) 0.0 - 10.0 % [facility] Eosinophils 1.9 0.0 - 5.0 % [facility] Basophils 0.7 0.0 - 1.0 % [facility] Immature granulocytes 0.3Comment: 0.0 - 1.0 % [facility] "Immature [facility] granulocytes" (promyelocytes , myelocytes, metamyelocytes ) Specimen Blood Performing Organization Address City/State/ZIP Code Phon e Number [facility] DEPARTMENT OF PATHOLOGY AND [address] [place] [address] [phone] GENOMIC MEDICINE [facility] [address] [place] [address] Comprehensive metabolic panel (09/05/2019 2:04 PM CDT) Sodium 137 135 - 148 [facility] mEq/L [facility] Potassium 4.4 3.5 - 5.0 [facility] mEq/L [facility] Chloride 101 98 - 112 [facility] mEq/L [facility] CO2 22 (L) 24 - 31 mEq/L [facility] Anion gap 14@ANIO 7 - 15 mEq/L [facility] BUN 24 (H) 8 - 23 mg/dL [facility] Creatinine 1.72 (H) 0.70 - 1.20 [facility] mg/dL HOSPITAL Glucose 100 (H) 65 - 99 mg/dL [facility] Calcium 9.7 8.8 - 10.2 [facility] mg/dL HOSPITAL Protein 7.6 6.3 - 8.3 [facility] Comment: g/dL HOSPITAL - 4.6-7.0 g/dL 1 week 4.4-7.6 g/dL 7 months-1year 5.1-7.3 g/dL 1-2 years 5.6-7.5 g/dL >3 years 6.0-8.0 g/dL 18-150 6.3-8.3 g/dL Albumin 4.0 3.5 - 5.0 [facility] g/dL HOSPITAL A/G ratio 1.1 0.7 - 3.8 [facility] Alkaline phosphatase 82 40 - 129 U/L [facility] AST 28 10 - 50 U/L [facility] ALT 19 5 - 50 U/L [facility] Total bilirubin 0.7 0.0 - 1.2 [facility] mg/dL HOSPITAL Specimen Blood Performing Organization Address City/State/ZIP Code Phon e Number [facility] DEPARTMENT OF PATHOLOGY AND [address] [place] [phone] GENOMIC MEDICINE [facility] [address] [place] [address] after 04/18/2019 (Home) [address] [place] [id number] Advance Directives For more information, please contact: [phone] Type Date Recorded Patient Bond Analyst Explanati on Advance Directives, Living Will and Medical Power of Collaborating Supervising Physician Advance Directives, 06/04/2018 1:00 PM Living Will and Medical Power of Collaborating Supervising Physician
--- OUTSIDE RECORDS SUMMARY | 2020-04-18 12:20 | XMS REPORT | Continuity of Care Document ---
:1940 Author Organization [facility] t Address [address] [place] [address] [address]. [address] [place] [address] Care Team Providers Name Role Phone Lizzie GREGORIO Primary Care Physician Concepcion GREGORIO, [facility] Attending Clinician Payers Payer Name Policy Type Policy Effective Expiration Source Number Date Date TEXANPLUSTEXANPLUS [id number] 2016 [place] [id number] 2016-Pr 00:00:00 M ethodist esentHMO Problems Condition Condition Condition Status Onset Resolution Last Treating Co mments Source Name Details Category Date Date Treatment Clinician Date Mult Mult Disease Active [place] fractures fractures 7-11 Meth ryan of of 00:00: st thoracic thoracic 00 spine, spine, closed closed Compressio Compressio Disease Active [place] n fracture n fracture 7-10 Me thodi of body of of body of 00:00: st thoracic thoracic 00 vertebra vertebra Back pain Back pain Disease Active Denia ston of lumbar of lumbar 8-08 Meth ryan region region 00:00: st with with 00 sciatica sciatica Allergies, Adverse Reactions, Alerts Allergy Allergy Status Severity Reaction(s) Onset Inactive Treating Comm ents Source Name Type Date Date Clinician Codeine Propensi Active Other (See dizziness Nobles ty to Comments) 08-29 Methodi adverse 00:00: st reaction 00 s to drug Butorpha Propensi Active Other (See States it [facility] ty to Comments) 08-29 was given Meth ryan Tartrate adverse 00:00: in the emergency s to room and drug after a few minutes patient became very hot and then unrespons leatha Social History Social Habit Start Date Stop Date Quantity Comments Source Sex Assigned At [facility] ethodist Tobacco use and 2019-09-05 2019-09-05 Never used [facility] ethodist exposure 00:00:00 00:00:00 Alcohol intake 2019-09-05 2019-09-05 Current drinker of Yasmani Cruz 00:00:00 00:00:00 alcohol (finding) Alcohol Comment 2016-08-29 2016-08-29 1 beer everynight Yasmani Cruz 00:00:00 00:00:00 Smoking Status Start Date Stop Date Source Never smoker [place] [facility] t Medications Ordered Filled Start Stop Current Ordering Indication Dosage Frequency Signature Comments Components Source Medication Medication Date Date Medication? Clinician (SIG) Name Name fluticasone Yes 100ug QD 2 sprays [place] propionate 10-07 (100 mcg Metho di (FLONASE) 00:00: total) by st 50 00 Each Nare mcg/actuati route on nasal daily. spray calcium 2020- No 1{tbl} QD Take 1 [place] on carbonate-v 10-07 tablet by Id thodi itamin D3 00:00: 23:[address] 500 mg-200 00 :00 daily. unit per tablet calcitonin, 2020- No .09mL QD 1 spray H [place] salmon, 10-06 (0.09 mL Methodi (MIACALCIN) 00:00: 23:59 total) st 200 00 :00 into each unit/actuat nostril ion nasal daily. spray famotidine 2020- No 20mg Q.5D Take 1 [place] (PEPCID) 20 10-06 tablet (20 M ethodi MG tablet 00:00: 23:59 mg total) st 00 :00 by mouth 2 (two) times a day. gabapentin 2020- No 100mg Q.[id number] Take 1 Nobles (NEURONTIN) 10-06 [id number] capsule Methodi 100 mg 00:00: 23:59 3D ([address] capsule 00 :00 total) by mouth 3 (three) times a day. sodium 2020- No 2{spray 2 sprays Denia ston chloride 7-17 07-16 } into each Metho di (OCEAN) 00:00: 23:[address] 0.65 % 00 :00 needed for nasal spray rhinitis. nystatin-tr No Apply to Sarahi trejo iamcinolone 15 -14 affected Met leopoldo (MYCOLOG 00:00: 23:[address] II) 00 :00 100,000-0.1 unit/g-% cream clonAZEPAM Yes .5mg QD Take 0.5 Denia ston (KlonoPIN) 6-02 mg by Methodi 0.5 MG 00:00: mouth st tablet 00 nightly. carbidopa-l Yes 1{tbl} Q.25D Take 1 [place] evodopa 5-24 tablet by Methodkaro (SINEMET) 00:00: mouth 4 st 25-100 mg 00 (four) per tablet times a day. AmANTadine Yes 100mg Q.[id number] Take 100 Nobles (SYMMETREL) 5-06 [id number] mg by Mo ethodi 100 mg 00:00: 3D mouth 3 st capsule 00 (three) times a day. Vital Signs Vital Name Observation Time Observation Value Comments Source Systolic blood 2019-09-05 21:20:00 165 mm[Hg] Barbara Cruz pressure Diastolic blood 2019-09-05 21:20:00 78 mm[Hg] Bonnie caro Religious pressure Heart rate 2019-09-05 21:20:00 82 /min Giuliano Cruz Respiratory rate 2019-09-05 21:20:00 18 /min Alfredito Cruz Oxygen saturation in 2019-09-05 21:20:00 99 /min Giuliano Cruz Arterial blood by Pulse oximetry Body temperature 2019-09-05 12:52:56 37 [place] Alfredito Cruz Body height 2019-09-05 12:44:00 182.9 cm Giuliano Cruz Body weight 2019-09-05 12:44:00 70.308 kg Giuliano Cruz BMI 2019-09-05 12:44:00 21.02 kg/m2 Giuliano Cruz Procedures Procedure Date / Time Performed Performing Clinician Sourc e XR ANKLE 3+ VW LEFT 2019-09-05 19:20:38 Esthela Cantor on Religious ECG 12-LEAD 2019-09-05 18:45:47 Esthela Cantor ethodist US ANKLE BRACHIAL INDEX 2019-09-05 16:56:16 Esthela Cantor US DUPLEX ARTERIAL LOWER 2019-09-05 16:56:01 Esthela Cantor EXTREMITY LEFT US DUPLEX VENOUS LOWER 2019-09-05 16:55:50 Devaughn Esthela bondton Religious EXTREMITY LEFT XR FOOT 3+ VW LEFT 2019-09-05 15:12:28 Esthela Cantor HC COMPLETE BLD COUNT 2019-09-05 14:04:00 Esthela Cantor ston Religious W/AUTO DIFF COMPREHENSIVE METABOLIC 2019-09-05 14:04:00 Esthela Cantor PANEL ESTIMATED GFR 2019-09-05 14:04:00 Esthela Cantor ethodi Plan of Care Planned Activity Planned Date Details Comments Source Future Scheduled 2019-10-22 INFLUENZA VACCINE Barbara ayala Religious Test 00:00:00 [code = INFLUENZA VACCINE] Future Scheduled 2007-12-16 65+ PNEUMOCOCCAL [place] Religious Test 00:00:00 VACCINE (1 of 1 - PPSV23) [code = 65+ PNEUMOCOCCAL VACCINE (1 of 1 - PPSV23)] Future Scheduled 1992 SHINGLES VACCINES (#1) [facility] Religious Test 00:00:00 [code = SHINGLES VACCINES (#1)] Future Scheduled 1958 COVID-19 VACCINE (1 of H neil Religious Test 00:00:00 2) [code = COVID-19 VACCINE (1 of 2)] Encounters Start End Encounter Admission Attending Care Care Encounter Source Date/Time Date/Time Type Type Clinicians Facility Department ID 2019-09-05 2019-09-05 Emergency [facility] [id number] 63 [place] 00:00:00 00:00:00 [facility] [address] Results Test Description Test Time Test Comments Results Result Comments Source ECG 12 lead 2019-09-07 10:11:35 Test Item Value Reference Range Interpretation Comme nts Ventricular rate (test code = 253) 73 Atrial rate (test code = 255) 73 WA interval (test code = 266) 200 QRSD interval (test code = 260) 82 QT interval (test code = 264) 634 QTC interval (test code = 265) 698 QRS axis 1 (test code = 268) 228 T wave axis (test code = 270) 226 EKG impression (test code = 273) Baseline artifact-Normal sinus rhythm-Nonspecific ST and T wave abnormality-Abnormal ECG-In automated comparison with ECG of 05-NOV-2017 08:22,-Previous ECG was in sinus rhythm, apparent after low-pass noise filtering- [place] MethodistXR Ankle 3+ Vw [id number] 19:23:02Hm Interface, Radiology Results Incoming 09/05/2019 7:26 PM CDTEXAMINATION: XR ANKLE 3 VW LEFTCL INICAL HISTORY: Ankle pain initial examCOMPARISON: No PriorIMPRESSION:1.Soft tissue swelling of the ankle. No fractures or dislocations. Microvascular calcifications. Achilles tendinosis. No acute findings.[facility]LEYSonia[facility] MethodistUs duplex arterial lower [id number] 17:25:00Interface, Radiology Results In - 09/05/2019 5:25 PM CDT Vascular Ultrasound Laboratory Lower Extremity Arterial Duplex Report [id number]Name: JESSIE FIELDS Pat.ID: [id number] .Date: 09/05/2019 Refer.MD: PHYSICIAN, EMERGENCY, MDExam Time: 3:29:00 PM Study Type:LE Arterial Height: 72in Weight: 155lb BSA: 1.91 m2 Age: 9 1940,78Y Sex: MALE Sonogrphr: Nails Blanca, RVT Pat. Stat.:Outpatient Room: [facility] Vol: , CPT - 4: 05908 Echo Event ID:[id number] Order ID: [id number] Reason for Study:Left leg pain. Procedures: Colorflow, Grayscale/2D, Pulsed wave DopplerRace: C SUMMARY: DUPLEX SCAN OBSERVATIONS:LEFT: There is smooth intimal lining seen in the common femoralartery, profunda femoris artery,superficial femoral artery. There ishard and calcified plaque seen in the popliteal artery, tibialarteries, peroneal artery. Absent flow and Doppler signals are seen inthe entire posterior tibial artery. Elevated velocities are seen atproximal anterior tibial artery (118 cm/sec to 418 cm/sec-ratio 3.54). The mid and distal anterior tibial artery are patent.PRELIMINARY FINDINGS:1. Occlusion of left posterior tibial artery.2. 50- 75% stenosis of left proximal anterior tibial artery (ratio3.54).Result given to UYEN Barrientos at 16:30 PM on 09/05/2019.PHYSICIAN INTERPRETATION:Arterial duplex examination ofleft lower extremity demonstratesocclusion of left posterior tibial artery and a 50-75% stenosis ofleft proximal anterior tibial artery (ratio 3.54). FINDINGS:------- MEASUREMENTS:-- DOPPLERLeft UX ENGINEER prox UX ENGINEER prox PSV 87.1 cm/s Left Profunda Profunda PSV 75 cm/s Left SFA Dist SFA Dist PSV 45.7 cm/sLeft SFA Mid SFA Mid PSV 108 cm/s Left SFA Prox SFA Prox PSV 78.3 cm/s Left Pop Dist Pop Dist PSV 52.6 cm/s Left Pop Prox Pop Prox PSV 57.8 cm/s Pop Prox PSV 57.8 cm/sLeft UX ENGINEER Dist UX ENGINEER Dist PSV 87.1 cm/s Left TP Trunk Dist TP Trunk Dist P 75.5 cm/s Left CERTIFIED LACTATION EDUCATOR Prox CERTIFIED LACTATION EDUCATOR Prox PSV 0 cm/s Left CERTIFIED LACTATION EDUCATOR Mid CERTIFIED LACTATION EDUCATOR Mid PSV 0 cm/s Left CERTIFIED LACTATION EDUCATOR Distal CERTIFIED LACTATION EDUCATOR Distal PSV 0 cm/s Left Peroneal Prox [...] Distal PSV 57.2 cm/s Signed 09/05/2019 05:25 PMEb Rodriguez MD, RPVIHouston Methodpres[facility] ranchoUs ankle brachial [id number] 17:22:00Interface, Radiology Results In - 09/05/2019 5:23 PM CDT Vascular Diagnostic Laboratory Physiologic Arterial Leg Report [address] [place] [address] Pat.Name: JESSIE FIELDS Pat.ID: [id number] .Date: 09/05/2019 Refer.MD: PHYSICIAN, EMERGENCY, MDExam Time: 4:09:00 PM Study Type:Physiologic Leg Height: 72in Weight: 72lb BSA: 1.38 m2 Age: 9 1940,78Y Sex: MALE Sonogrphr: Nails Vi, RVTPat. Stat.:Outpatient Room: [facility] Vol: , [facility] - 4: 43596 Echo Event ID:[id number] Order ID: [id number] Reason for Study:Left leg pain. Procedures: Ankle/brachial pressures, Digit pressures, PPG waveformtracing, Segmental pressuresRace: C -------SUMMARY: DOPPLER SIGNALS / ANALOG WAVEFORMS: DOPPLER SIGNALS ANALOG WAVEFORMSARTERY RIGHT LEFT RIGHT LEFT Posterior Tibial Abnormal Absent Abnormal AbsentDorsalis Pedis Abnormal Abnormal Abnormal AbnormalSEGMENTAL PRESSURE (mmHg): RIGHT LEFT Brachial 174 Ankle DP 169 162 Ankle PT 129 0 Great Toe 114 100 ANKLE/BRACHIAL INDEX: RIGHT LEFT Dorsalis Pedis 0.98 0.94Posterior Tibial 0.75 0 TOE/BRACHIAL INDEX: RIGHT LEFT 0.66 0.58PRELIMINARY FINDINGS:1. Right ankle/brachial index falls into moderate category on PT, andwithin normal limit on DP.2. Left ankle/brachial index falls into mild category on DP, andunobtainable on PT due to absent Doppler signals of PT.3. Right toe/brachial index is within normal limit.4. Left toe/brachial index falls into mild category.PHYSICIAN INTE RPRETATION:1. Right ankle/brachial index falls into moderate category on PT, andwithin normal limit on DP.2. Left ankle/brachial index falls into mild category on DP, andunobtainable on PT due to absent Doppler signals of PT.3. Right toe/brachial index is within normal limit.4. Left toe/brachial indexfalls into mild category. FINDINGS: ------Signed 09/05/2019 05:22 PMEb Rodriguez MD, RPVIHouston MethodashleeUs duplex venous lower [id number] 17:14:00Interface, Radiology Results In - 09/05/2019 5:15 PM CDT Vascular Ultrasound Laboratory Lower Extremity Venous [address] [place] [address] Pat.Name: JESSIE FIELDS Pat.ID: [id number] .Date: 09/05/2019 Refer.MD: PHYSICIAN, EMERGENCY, Exam Time: 3:17:00 PM Study Type:LE Venous Height: 72in Weight: 155lb BSA: 1.91 m2 Age: 9 1940,78Y Sex: MALE Sonogrphr: Jesu Rios RVT Pat. Stat.:Outpatient Room: [facility] Vol: , CPT - 4: 80410 Echo Event ID:[id number] Order ID: [id number] Reason for Study:Left leg swelling.Procedures: Colorflow, Grayscale/2D, Pulsed wave DopplerRace: C SUMMARY: DUPLEX SCAN OBSERVATIONS Deep Veins Superficial Veins Right Left Right LeftEIV GSV(prox) NormalCFV Normal Normal (above knee)Femoral Normal GSV (dist) NormalProfunda Normal (below knee)Popliteal NormalPT (prox) Normal SSV Not VisualizedPT (dist) Normal Peroneal Normal Gastrocs Normal RIGHT: There is normal compressibility with no evidence of echogenicmaterial noted within the lumen of the common femoral vein.Colorflowand Doppler signals are normal.LEFT: There is normal compressibility with no evidence of echogenicmaterial noted within the lumen of the visualized veins.Colorflow andDoppler signals are normal. PRELIMINARY FINDINGS1. No evidence of venous thrombosis of the visualized veins.PHYSICIAN INTERPRETATION Venous examination of the left lower extremity and right groindemonstrated no evidence of venous thrombosis in the visualized veins. Normal compressibility and augmentation of all veins visualized. FINDINGS:----- Signed 09/05/2019 05:14 PMEb Rodriguez MD, RPVI [place] MethodistXR Foot 3+ Vw [id number] 15:14:39 Interface, Radiology Results 09/05/2019 3:17 PM CDTEXAMINATION: XR FOOT 3 VW LEFTCLI NICAL HISTORY: foot painCOMPARISON: none.IMPRESSION:1.No displaced fracture or dislocation. Vascular calcifications are noted. No destructive osseous abnormalities.[id number] ReligiousComprehensive metabolic panel 2019-09-05 14:55:54 Test Item Value Reference Range Interpretation Comments Sodium (test code = 137 135- 148 mEq/L 2951-2) Potassium (test code = 4.4 3.5- 5.0 mEq/L 2823-3) Chloride (test code = 101 98- 112 mEq/L 5-0) CO2 (test code = 2027-) 22 24- 31 mEq/L L Anion gap (test code = 14@ANIO 7- 15 mEq/L 57430-3) BUN (test code = 3094-0) 24 mg/dL 8-23 H Creatinine (test code = 1.72 mg/dL 0.7-1.2 H 2160-0) Glucose (test code = 100 mg/dL 65-99 H 2345-7) Calcium (test code = 9.7 mg/dL 8.8-10.2 66510-2) Protein (test code = 7.6 g/dL 6.3-8.3 -[place] n 2885-2) 4.6-7.0 g/dL1 week 4.4-7 .6 g/dL7 months-1y ear 5.1-7 .3 g/dL1-2 years 5.6-7 .5 g/dL>3 years 6.0-8 .0 g/lO56-551 6.3-8 .3 g/dL Albumin (test code = 4.0 g/dL 3.5-5 175-7) A/G ratio (test code = 1.1 0.7-3.8 1759-0) Alkaline phosphatase 82 U/L 40-129 (test code = 6768-6) AST (test code = 1920-8) 28 U/L 10-50 ALT (test code = 1742-6) 19 U/L 5-50 Total bilirubin (test 0.7 mg/dL 0-1.2 code = 1974-2) Lab Interpretation (test Abnormal code = 99867-3) [place] MethodistEstimated [id number] 14:55:47 Test Item Value Reference Range Interpretation Comments Estimated GFR (test 38 mL/min/1.73 m2 Haydee solis Units code = 5488) InterpretationG 1 >=90 Cintia l or highG2 60-89 Mildly decrease dG3a 45-59 Mil dly to moderately decr xslyrA8o 30-44 Moderately to s everely decreasedG4 15-29 Severe ly decreasedG5 <15 Kidney chuy lureThe eGFR was calcul ated using the Chron ic Kidney Disease Epidemiology Collaboration ( CKD-EPI) equation. Interpretation is based on recommendati ons of the National [facility]-Kidn ey Disease Outcome s Quality Initiat leatha (NKF-KDOQI) pub lished in 2013. Lab Interpretation Abnormal (test code = 29934-6) Giuliano CruzCBC with platelet and [id number] 14:28:31 Test Item Value Reference Range Interpretation Comments WBC (test code = 72672-4) 7.29 4.50- 11.00 k/uL RBC (test code = 04231-1) 5.09 m/uL 4.4-6 HGB (test code = 718-7) 15.7 g/dL 14-18 HCT (test code = 4544-3) 48.2 % 41-51 MCV (test code = 787-2) 94.7 fL 82-100 MCH (test code = 785-6) 30.8 pg 27-34 MCHC (test code = 786-4) 32.6 g/dL 31-37 RDW - SD (test code = 49.0 fL 37-55 15502-9) MPV (test code = 86043-5) 9.3 fL 8.8-13.2 Platelet count (test code 207 150- 400 k/uL = 01267-5) Nucleated RBC (test code 0.00 /100 WBC = 78914-8) Neutrophils (test code = 54.9 % 39-69 08661-5) Lymphocytes (test code = 30.5 % 25-45 79307-8) Monocytes (test code = 11.7 % 0-10 H 77444-3) Eosinophils (test code = 1.9 % 0-5 43582-0) Basophils (test code = 0.7 % 0-1 10175-2) Immature granulocytes 0.3 % 0-1 "Immat ure (test code = 20245-1) granul ocytes" (promyelocytes, myelocytes, metamyelocytes) Lab Interpretation (test Abnormal code = 30141-7) Giuliano Cruz
--- NOTE | 2020-04-18 13:04 | RAD REPORT ---
EXAM DESCRIPTION: CT - Head C Spine Mpr Wo Con - 04/18/2020 12:44 pm CLINICAL HISTORY: Head and neck injury status post fall. Head and neck pain COMPARISON: 2017 TECHNIQUE: Computed axial tomography of the head and cervical spine was obtained. Sagittal and coronal reconstruction was performed. All CT scans are performed using dose optimization technique as appropriate and may include automated exposure control or mA/KV adjustment according to patient size. FINDINGS: A neurostimulator device is in place. Artifact from the device does limit detail somewhat. An intracranial bleed is not seen. There is no hydronephrosis. Mild to moderate low-density areas within periventricular deep and subcor tical white matter likely ischemic changes secondary to small vessel disease A cervical fracture is not visualized. No dislocation is noted. A moderate compression fracture involves the T2 vertebral body. There is compression approximately 60 %. . The fracture appears subacute. Retropulsion of bone results in approximately 35% narrowing of th e spinal canal IMPRESSION: No acute intracranial abnormality is seen. T2 compression fracture which may subacute.
--- NOTE | 2020-04-18 13:09 | RAD REPORT ---
EXAM DESCRIPTION: RAD - Shoulder Right 2 View - 04/18/2020 1:00 pm CLINICAL HISTORY: Right shoulder pain FINDINGS: No fracture or dislocation is seen. Osteoporosis
--- NOTE | 2020-04-18 13:32 | EDPHYS ---
Physician Documentation [facility] Name: Dale Domínguez Jr Age: 79 yrs Sex: Male : 1940 Arrival Date: 04/18/2020 Time: 12:20 Bed 12 Private MD: Gunnar Sams R ED Physician Anthony Gorman HPI: 04/18 13:29 This 79 yrs old Male presents to ER via EMS with complaints of Fall Injury. ma2 13:29 Details of fall: The patient fell from an upright position. Onset: The symptoms/episode ma2 began/occurred suddenly, 1 hour(s) ago. Severity of symptoms: At their worst the symptoms were moderate, in the emergency department the symptoms are unchanged. The patient has experienced similar episodes in the past. tripped and fell hit her head and right shoulder . Historical: - Allergies: 12:25 Codeine; aa5 12:25 Stadol; aa5 - PMHx: 12:25 Parkinsons; aa5 - PSHx: 12:25 Brain stimulator; Appendectomy; prostate; aa5 - Immunization history:: Adult Immunizations up to date. - Social history:: Patient/guardian denies using alcohol, street drugs, The patient lives with family, Smoking status: . - Family history:: not pertinent. ROS: 13:29 Constitutional: Negative for fever, chills, and weight loss. ma2 13:29 All other systems are negative. Exam: 13:29 Constitutional: This is a well developed, well nourished patient who is awake, alert, ma2 and in no acute distress. Head/Face: Normocephalic, atraumatic. Eyes: Pupils equal round and reactive to light, extra-ocular motions intact. Lids and lashes normal. Conjunctiva and sclera are non-icteric and not injected. Cornea within normal limits. Periorbital areas with no swelling, redness, or edema. ENT: Nares patent. No nasal discharge, no septal abnormalities noted. Tympanic membranes are normal and external auditory canals are clear. Oropharynx with no redness, swelling, or masses, exudates, or evidence of obstruction, uvula midline. Mucous membranes moist. Neck: Trachea midline, no thyromegaly or masses palpated, and no cervical lymphadenopathy. Supple, full range of motion without nuchal rigidity, or vertebral point tenderness. No Meningismus. Chest/axilla: Normal chest wall appearance and motion. Nontender with no deformity. No lesions are appreciated. Cardiovascular: Regular rate and rhythm with a normal S1 and S2. No gallops, murmurs, or rubs. Normal PMI, no JVD. No pulse deficits. Respiratory: Lungs have equal breath sounds bilaterally, clear to auscultation and percussion. No rales, rhonchi or wheezes noted. No increased work of breathing, no retractions or nasal flaring. Abdomen/GI: Soft, non-tender, with normal bowel sounds. No distension or tympany. No guarding or rebound. No evidence of tenderness throughout. Back: No spinal tenderness. No costovertebral tenderness. Full range of motion. MS/ Extremity: ttp over lateral right shoulder Pulses equal, no cyanosis. Neurovascular intact. Full, normal range of motion. 13:29 Neuro: Awake and alert, GCS 15, oriented to person, place, time, and situation. ma2 Cranial nerves II-XII grossly intact. Motor strength 5/5 in all extremities. Sensory grossly intact. Cerebellar exam normal. Normal gait. Vital Signs: 12:23 BP 155 / 83; Pulse 66; Resp 16 S; Temp 97.0(TE); Pulse Ox 97% on R/A; aa5 MDM: 12:37 Patient medically screened. ma2 13:29 Differential diagnosis: contusion, fracture, multiple trauma, sprain, strain. Data ma2 reviewed: vital signs, nurses notes. Counseling: I had a detailed discussion with the patient and/or guardian regarding: the historical points, exam findings, and any diagnostic results supporting the discharge/admit diagnosis, the presence of at least one elevated blood pressure reading (>120/80) during this emergency department visit, the need for outpatient follow up. Response to treatment: the patient's symptoms have markedly improved after treatment. 04/18 12:31 Order name: CT Head C Spine 04/18 12:31 Order name: Shoulder Right (2 View) XRAY 04/18 13:05 Order name: CT; Complete Time: 13:22 EDMS 04/18 13:10 Order name: RAD; Complete Time: 13:22 EDMS Administered Medications: No medications were administered Disposition: 04/18/20 13:31 Discharged to Home. Impression: Pain in right shoulder. - Condition is Stable. - Discharge Instructions: Joint Pain. - Prescriptions for Cyclobenzaprine 10 mg Oral Tablet - take 1 tablet by ORAL route every 8 hours As needed; 30 tablet. - Medication Reconciliation Form, Thank You Letter, Antibiotic Education, Prescription Opioid Use form. - Follow up: Private Physician; When: Tomorrow; Reason: Continuance of care. Signatures: Dispatcher [employer] EDEkaterina Choudhury RN RN iw Calderon, Audri, RN RN aa5 Anthony Gorman MD MD ma2 Corrections: (The following items were deleted from the chart) 14:38 13:31 04/18/2020 13:31 Discharged to Home. Impression: Pain in right shoulder. iw Condition is Stable. Forms are Medication Reconciliation Form, Thank You Letter, Antibiotic Education, Prescription Opioid Use. Follow up: Private Physician; When: Tomorrow; Reason: Continuance of care. ma2
--- NOTE | 2020-04-18 13:32 | ER ---
Nurse's Notes [facility] Name: Dale Domínguez Jr Age: 79 yrs Sex: Male : 1940 Arrival Date: 04/18/2020 Time: 12:20 Bed 12 Private MD: Gunnar Sams R Diagnosis: Pain in right shoulder Presentation: 04/18 12:20 Chief complaint: EMS states: stumbled and fell. Pt c/o pain to head. Laceration noted aa5 to outer corner of right eye, no bleeding noted. Pt given 100mcg Fentanyl IV by [facility], 20 G to L FA. 12:20 Coronavirus screen: Client denies travel out of the [place] in the last 14 days. At this aa5 time, the client does not indicate any symptoms associated with coronavirus-19. Ebola Screen: Patient negative for fever greater than or equal to 101.5 degrees Fahrenheit, and additional compatible Ebola Virus Disease symptoms. Initial Sepsis Screen: Does the patient meet any 2 criteria? No. Patient's initial sepsis screen is negative. Does the patient have a suspected source of infection? No. Patient's initial sepsis screen is negative. Risk Assessment: Do you want to hurt yourself or someone else? Patient reports no desire to harm self or others. Onset of symptoms was March 2020. 12:20 Acuity: SANDHYA 3 aa5 12:20 Method Of Arrival: EMS: [facility] aa5 12:20 Care prior to arrival: IV initiated. Glucose check: 90. Mechanism of Injury: Fall from aa5 standing position. Trauma event details: Injury occurred in the [facility], Injury occurred: at home. Injury occurred: April 18, 2020. Triage Assessment: 14:30 General: Appears in no apparent distress. Behavior is calm, cooperative. iw Trauma Activation: Not Applicable Physician: ED Physician; Name: ; Notified At: ; Arrived At: Physician: General Surgeon; Name: ; Notified At: ; Arrived At: Physician: Radiology; Name: ; Notified At: ; Arrived At: Physician: Respiratory; Name: ; Notified At: ; Arrived At: Physician: Lab; Name: ; Notified At: ; Arrived At: Historical: - Allergies: 12:25 Codeine; aa5 12:25 Stadol; aa5 - PMHx: 12:25 Parkinsons; aa5 - PSHx: 12:25 Brain stimulator; Appendectomy; prostate; aa5 - Immunization history:: Adult Immunizations up to date. - Social history:: Patient/guardian denies using alcohol, street drugs, The patient lives with family, Smoking status: . - Family history:: not pertinent. Screenin:30 Abuse screen: Denies threats or abuse. Denies injuries from another. Nutritional iw screening: No deficits noted. Tuberculosis screening: No symptoms or risk factors identified. Fall Risk None identified. Primary Survey: 12:20 NO uncontrolled hemorrhage observed. A: The patient is alert. Airway: patent. aa5 Breathing/Chest: Chest inspection: symmetrical rise and fall of the chest. Circulation: Skin color: pink. Disability Alert. Assessment: 13:30 General: Appears in no apparent distress. Behavior is calm, cooperative. Pain: iw Complains of pain in anterior aspect of right shoulder and posterior aspect of right shoulder. Neuro: Level of Consciousness is awake, alert, obeys commands, Oriented to person, place, time, situation. Cardiovascular: Patient's skin is warm and dry. Respiratory: Respiratory effort is even, unlabored, Respiratory pattern is regular. GI: Abdomen is flat, non-distended. Derm: Skin is intact, is healthy with good turgor. Musculoskeletal: Range of motion: intact in all extremities. Vital Signs: 12:23 BP 155 / 83; Pulse 66; Resp 16 S; Temp 97.0(TE); Pulse Ox 97% on R/A; aa5 ED Course: 12:20 Patient arrived in ED. ag5 12:20 Gunnar Sams MD is Private Physician. ag5 12:20 Arm band placed on. aa5 12:30 Triage completed. aa5 12:37 Anthony Gorman MD is Attending Physician. ma2 13:40 Patient has correct armband on for positive identification. iw 14:37 No provider procedures requiring assistance completed. Patient did not have IV access iw during this emergency room visit. Administered Medications: No medications were administered Outcome: 13:31 Discharge ordered by . ma2 14:37 Discharged to home via wheelchair. iw 14:37 Condition: good 14:37 Discharge instructions given to patient, Instructed on discharge instructions, follow up and referral plans. Demonstrated understanding of instructions, follow-up care, medications, Prescriptions given X 1. 14:38 Patient left the ED. iw Signatures: Ekaterina Bose RN RN Verenice Fry RN RN aa5 Anthony Gorman MD MD ma2 Abner Craft ag5 Corrections: (The following items were deleted from the chart) 12:30 12:25 Arm band placed on aa5 aa5 12:31 12:23 Chief complaint: aa 19:03 12:47 Verenice Fry, RN is Primary Nurse. [place] [id number]
== END 2020-04-18 14:38 | disposition home or self-care (01) ==
LOC: ER 12:16
DX: M25.511 Pain in right shoulder (principal); W01.0XXA Fall on same level from slipping, tripping and stumbling without subsequent striking against object, initial encounter; Z91.81 History of falling; Y93.9 Activity, unspecified; Y92.9 Unspecified place or not applicable; Z88.6 Allergy status to analgesic agent
CPT/HCPCS: 70450; 72125; 99283